=== PATIENT | female | born 1980 | race American Indian/Alaskan Native ===

== ENCOUNTER 2021-10-01 10:20 | Inpatient (IN) | payer SELFPAY ==
[2021-10-01] MEDS ORDERED: SODIUM CHLORIDE 0.9% 1000 ML 1,000 ML ONE (11:55)
[2021-10-01] MEDS ORDERED: PANTOPRAZOLE 40 MG INJ IV ONE (12:01)
[2021-10-01] MEDS ORDERED: SODIUM CHLORIDE 0.9% 1000 ML 1,000 ML IV ONE (12:02)
--- NOTE | 2021-10-01 12:08 | Emergency Department Report ---
ED GI Bleed HPI - General Chief complaint: GI Bleed Stated complaint: BLOOD IN STOOL X 2DAYS/HYPERTENSION Time Seen by Provider: 10/01/21 11:05 Source: EMS Mode of arrival: Ambulatory Limitations: No Limitations - History of Present Illness Initial comments: 41 yo F who present with rectal bleeding that started since 3 days ago and progressively getting worse. Pt has history of internal hemorrhoid and diverticulosis. She had the same symptoms about 8-10 years ago and was transfused at that time. She also reports some dizziness and lightheadedness. S he reports about average of 4-5 bloody diarrhea since this started. Pt had a large bloody diarrhea while in the ED this afternoon. No fever or chills reported. And patient denies any other modifying or associated factors. Severity scale (0 -10): 0 - Related Data Home Medications Medication Instructions Recorded Confirmed Last Taken No Known Home Medications [No 10/01/21 10/01/21 Unknown Reported Home Medications] Allergies Allergy/AdvReac Type Severity Reaction Status Date / Time No Known Allergies Allergy Verified 10/01/21 10:28 ED Review of Systems ROS: Stated complaint: BLOOD IN STOOL X 2DAYS/HYPERTENSION Other details as noted in HPI Comment: All other systems reviewed and negative Gastrointestinal: hematochezia, other (internal hemorrhoid ). denies: abdominal pain, nausea, vomiting ED Past Medical Hx - Past Medical History Previous Medical History?: Yes Hx Hypertension: Yes (Chronic-since teenager) Hx Congestive Heart Failure: No Hx Diabetes: No Hx Deep Vein Thrombosis: No Hx Renal Disease: No Hx Sickle Cell Disease: No Hx Seizures: No Hx Asthma: No Hx COPD: No Hx HIV: No Additional medical history: hemorrhoids, GASTRITIS - Surgical History Additional Surgical History: x3 - Social History Smoking Status: Current Every Day Smoker - Medications Home Medications: Home Medications Medication Instructions Recorded Confirmed Last Taken Type No Known Home Medications [No 10/01/21 10/01/21 Unknown History Reported Home Medications] ED Physical Exam - General Limitations: No Limitations General appearance: alert, in no apparent distress - Head Head exam: Present: normal inspection - Eye Eye exam: Present: normal appearance, other - ENT ENT exam: Present: normal orophraynx ED Course Vital Signs 10/01/21 10/01/21 10/01/21 10:22 10:44 10:51 Temperature 98.8 F Pulse Rate 134 H 129 H 133 H Respiratory 16 27 H 26 H Rate Blood Pressure Blood Pressure 170/111 156/101 [Left] O2 Sat by Pulse 100 100 99 Oximetry 10/01/21 10/01/21 10/01/21 11:00 11:30 12:00 Temperature Pulse Rate 123 H 131 H 122 H Respiratory 15 13 20 Rate Blood Pressure 135/102 137/94 141/99 Blood Pressure [Left] O2 Sat by Pulse 98 99 100 Oximetry 10/01/21 10/01/21 10/01/21 12:30 13:00 13:30 Temperature Pulse Rate 127 H 77 118 H Respiratory 21 39 H 17 Rate Blood Pressure 127/97 130/105 124/80 Blood Pressure [Left] O2 Sat by Pulse 100 100 97 Oximetry 10/01/21 10/01/21 10/01/21 14:00 14:50 15:00 Temperature Pulse Rate 92 H Respiratory 16 Rate Blood Pressure 121/83 Blood Pressure [Left] O2 Sat by Pulse 100 100 100 Oximetry 10/01/21 10/01/21 10/01/21 15:30 16:00 16:30 Temperature Pulse Rate Respiratory Rate Blood Pressure 131/80 137/85 139/90 Blood Pressure [Left] O2 Sat by Pulse 100 100 100 Oximetry 10/01/21 10/01/21 10/01/21 17:00 17:30 18:00 Temperature Pulse Rate Respiratory Rate Blood Pressure 131/78 120/78 129/94 Blood Pressure [Left] O2 Sat by Pulse 88 100 99 Oximetry 10/01/21 10/01/21 10/01/21 18:30 19:00 19:30 Temperature Pulse Rate 109 H Respiratory 19 Rate Blood Pressure 120/88 153/107 134/98 Blood Pressure [Left] O2 Sat by Pulse 100 100 100 Oximetry 10/01/21 10/01/21 10/01/21 20:00 20:30 20:32 Temperature 99.1 F Pulse Rate 121 H 128 H Respiratory 16 16 14 Rate Blood Pressure 132/106 140/98 Blood Pressure [Left] O2 Sat by Pulse 100 100 100 Oximetry 10/01/21 10/01/21 20:40 20:50 Temperature Pulse Rate 122 H 114 H Respiratory 16 17 Rate Blood Pressure 148/93 148/93 Blood Pressure [Left] O2 Sat by Pulse 100 100 Oximetry - Reevaluation(s) Reevaluation #1: 10/01/21 15:07 pt here with GI bleeding that i believed is internal hemorrhoid considering that it was painless and bright red in nature. Plus the patient has history of this with transfusion about 8-10 years ago. Routine labs ordered and noted with hemoglobin 7.8 and 24 hematocrit. Pt might not need blood transfusion at the time but i believed if she continue to bleed this way is a matter of time before blood in needed. Will go ahead and continue hydration with 1L ivf fluid for the hypotension. Reevaluation #2: 10/01/21 15:11 Pt signed out to Dr Hernandez while waiting for CT abd/pel result. ED Medical Decision Making - Lab Data Result diagrams: 10/03/21 09:07 10/03/21 06:55 Critical care attestation.: If time is entered above; I have spent that time in minutes in the direct care of this critically ill patient, excluding procedure time. ED Disposition Clinical Impression: Internal hemorrhoid, bleeding GI bleeding Qualifiers: GI bleed type/associated pathology: anorectal hemorrhage Qualified Code(s): K62.5 - Hemorrhage of anus and rectum Disposition: 09 ADMITTED INPATIENT Is pt being admited?: No Does the pt Need Aspirin: No Condition: Stable
[2021-10-01 12:33] LABS: Basophils % (Auto) 0.4 % (0.0-1.8); Eosinophils % (Auto) 0.2 % (0.0-4.3); Hematocrit 24.6 % (30.3-42.9); Hemoglobin 7.8 gm/dl (10.1-14.3); Lymphocytes % (Auto) 31.1 % (13.4-35.0); Mean Corpuscular HGB Conc 32 % (30-34); Mean Corpuscular Volume 95 fl (79-97); Monocytes # (Auto) 0.4 K/mm3 (0.0-0.8); Monocytes % (Auto) 5.7 % (0.0-7.3); Platelet Count 293 K/mm3 (140-440); Red Blood Count 2.58 M/mm3 (3.65-5.03)
[2021-10-01 12:42] LABS: INR 0.93 (0.87-1.13)
[2021-10-01 12:43] LABS: Partial Thromboplastin Time 27.6 Sec. (24.2-36.6)
[2021-10-01 12:54] LABS: Alanine Aminotransferase 14 units/L (7-56); Albumin 3.6 g/dL (3.9-5); Blood Urea Nitrogen 12 mg/dL (7-17); Calcium 8.9 mg/dL (8.4-10.2); Hemolysis Index 17
[2021-10-01 13:09] LABS: BUN/Creatinine Ratio 24
--- NOTE | 2021-10-01 15:17 | Cat Scan Report ---
CT ABDOMEN AND PELVIS WITH CONTRAST HISTORY: GI bleeding 100 ml omni 300 COMPARISON: None. TECHNIQUE: Axial CT images were obtained through the abdomen and pelvis after 100 cc of IV contrast. Sagittal and coronal reformatted images. All CT scans at this location are performed using CT dose re duction for ALARA by means of automated exposure control. FINDINGS: CT ABDOMEN: Lung Bases: Clear. Liver: No significant abnormality. Biliary: There are multiple calcified gallstones within the gallbladder. No evidence for acute cholec ystitis. No extrahepatic biliary dilatation. Spleen: No significant abnormality. Unenlarged. Pancreas: No significant abnormality. Adrenals: No significant abnormality. Kidneys: No significant abnormality. Lymphatics: No lymphadenopathy. Vasculature: No significant abnormality. Bowel/Peritoneum: No significant abnormality. No free air. No free fluid. Normal appendix. CT PELVIS: : No significant abnormality. Essure tubal devices are noted bilaterally. Osseous Structures: No significant abnormality. Additional Findings: None IMPRESSION: Cholelithiasis. No source of GI bleeding is detected on standard CT with contrast. Signer Name: Sergei Lentz Jr, MD Signed: 10/01/2021 3:13 PM Workstation Name: [id number]
--- NOTE | 2021-10-01 15:39 | Event Note ---
Date: 10/01/21 Patient was signed out to me at shift change for follow-up CT abdomen and pelvis. No source of GI bleeding noted on CT scan. Will admit to hospitalist service for serial H&H's and GI consult.
[2021-10-01] MEDS ORDERED: METOCLOPRAMIDE 10 MG/2 ML INJ IV PRN (19:03)
[2021-10-01] MEDS: SODIUM CHLORIDE 0.9% 1000 ML 1,000 ML IV SCH (23:14)
[2021-10-01] MEDS: ONDANSETRON 4 MG/2 ML INJ IV PRN (23:27)
--- NOTE | 2021-10-01 23:32 | Event Note ---
Date: 10/01/21 Code med is called patient is vomiting patient is diaphoretic patient is bleeding. BP is 101/51. We are going to transfer the patient to the [facility] ICU for overnight observation. We order stat CBC if needed will transfuse the patient. We also give Zofran 4 mg IV every 6 hours as needed.
[2021-10-01 23:38] LABS: Mean Corpuscular HGB Conc 32 % (30-34); Mean Corpuscular Volume 95 fl (79-97); Platelet Count 300 K/mm3 (140-440); Red Blood Count 1.77 M/mm3 (3.65-5.03); Red Cell Distribution Width 14.9 % (13.2-15.2)
[2021-10-02 00:07] LABS: Hematocrit 16.8 % (30.3-42.9); Hemoglobin 5.4 gm/dl (10.1-14.3)
[2021-10-02] MEDS ORDERED: SODIUM CHLORIDE 0.9% 500 ML 500 ML IV ONE ×2 (00:37→23:02)
[2021-10-02] MEDS ORDERED: PANTOPRAZOLE 40 MG INJ IV ONE (01:00)
[2021-10-02] MEDS ORDERED: SODIUM CHLORIDE 0.9% 1000 ML IV SOLN IV ONE (01:04)
[2021-10-02] MEDS: ONDANSETRON 4 MG/2 ML INJ IV PRN (01:24)
[2021-10-02 03:50] LABS: Monocytes % (Manual) 0 % (0.0-7.3); Total Cells Counted 100
[2021-10-02 03:51] LABS: Eosinophils % (Manual) 0 % (0.0-4.3)
[2021-10-02 03:53] LABS: Hypochromasia 3+; Platelet Estimate Consistent w Auto
--- NOTE | 2021-10-02 06:57 | History and Physical Report ---
History of Present Illness Date of examination: 10/01/21 Date of admission: 10/01/21 19:03 Chief complaint: Bright red blood per rectum for the last 2 days History of present illness: 41-year-old with history of hypertension comes in for rectal bleeding for the last 3 days. Blood per rectum intermittently for the last 3 days. Patient has a history of internal hemorrhoids and diverticulosis. Similar episode about 10 years ago. Dizziness and lightheadedness. 4-5 episodes of bloody stools for 2 hours. Patient had a large bloody bowel movement while in the emergency room. No abdominal pain. No fever or chills. - Past Medical History --Previous Medical History?: Yes --Hypertension: Does not take any medications --Additional medical history: hemorrhoids, GASTRITIS - Surgical History --Additional Surgical History: x3 - Social History --Smoking Status: Current Every Day Smoker - Family History --Htn - Medications --Home Medications: Home Medications Medication Instructions Recorded Confirmed Last Taken Type No Known Home Medications [No 10/01/21 10/01/21 Unknown History Reported Home Medications] Review of Systems ROS: Stated complaint: BLOOD IN STOOL X 2DAYS/HYPERTENSION Other details as noted in HPI Comment: All other systems reviewed and negative Gastrointestinal: hematochezia, other (internal hemorrhoid ). denies: abdominal pain, nausea, vomiting Medications and Allergies Allergies Allergy/AdvReac Type Severity Reaction Status Date / Time No Known Allergies Allergy Verified 10/01/21 10:28 Home Medications Medication Instructions Recorded Confirmed Last Taken Type No Known Home Medications [No 10/01/21 10/01/21 Unknown History Reported Home Medications] Active Meds: Active Medications Acetaminophen (Acetaminophen 325 Mg Tab) 650 mg PO Q4H PRN PRN Reason: Pain MILD(1-3)/Fever >100.5/FORTE Sodium Chloride (Nacl 0.9% 1000 Ml) 1,000 mls @ 75 mls/hr IV DIRECT MATT Last Admin: 10/01/21 23:14 Dose: 75 mls/hr Metoclopramide HCl (Metoclopramide 10 Mg/2 Ml Inj) 10 mg IV Q6H PRN PRN Reason: Nausea And Vomiting Morphine Sulfate (Morphine 2 Mg/1 Ml Inj) 2 mg IV Q4H PRN PRN Reason: Pain, Moderate (4-6) Ondansetron HCl (Ondansetron 4 Mg/2 Ml Inj) 4 mg IV Q8H PRN PRN Reason: Nausea And Vomiting Last Admin: 10/02/21 01:24 Dose: 4 mg Sodium Chloride (Sodium Chloride 0.9% 10 Ml Flush Syringe) 10 ml IV BID MATT Last Admin: 10/01/21 22:52 Dose: 10 ml Sodium Chloride (Sodium Chloride 0.9% 10 Ml Flush Syringe) 10 ml IV PRN PRN PRN Reason: LINE FLUSH Exam - Constitutional Vitals: Temp Pulse Resp BP Pulse Ox 98.4 F 95 H 22 116/91 99 10/02/21 04:44 10/02/21 05:30 10/02/21 05:30 10/02/21 05:30 10/02/21 05:30 General appearance: Present: no acute distress, well-nourished - EENT Eyes: Present: PERRL ENT: hearing intact, clear oral mucosa - Neck Neck: Present: supple, normal ROM - Respiratory Respiratory effort: normal Respiratory: bilateral: CTA - Cardiovascular Heart rate: 76 Rhythm: regular Heart Sounds: Present: S1 & S2. Absent: rub, click - Extremities Extremities: pulses symmetrical, No edema Peripheral Pulses: within normal limits - Abdominal General gastrointestinal: Present: soft, non-tender, non-distended, normal bowel sounds Female genitourinary: Present: normal - Rectal Rectal Exam: stool bloody - Integumentary Integumentary: Present: clear, warm, dry - Musculoskeletal Musculoskeletal: gait normal, strength equal bilaterally - Psychiatric Psychiatric: appropriate mood/affect, intact judgment & insight - Neurologic Neurologic: CNII-XII intact, moves all extremities Results - Labs CBC & Chem 7: 10/01/21 23:29 10/01/21 12:15 Labs: Laboratory Last Values WBC 13.1 K/mm3 (4.5-11.0) H 10/01/21 23:29 RBC 1.77 M/mm3 (3.65-5.03) L 10/01/21 23:29 Hgb 5.4 gm/dl (10.1-14.3) L* 10/01/21 23:29 Hct 16.8 % (30.3-42.9) L* D 10/01/21 23:29 MCV 95 fl (79-97) 10/01/21 23:29 MCH 31 pg (28-32) 10/01/21 23:29 MCHC 32 % (30-34) 10/01/21 23:29 RDW 14.9 % (13.2-15.2) 10/01/21 23:29 Plt Count 300 K/mm3 (140-440) 10/01/21 23:29 Lymph % (Auto) 31.1 % (13.4-35.0) 10/01/21 12:15 [place] % (Auto) 5.7 % (0.0-7.3) 10/01/21 12:15 Eos % (Auto) 0.2 % (0.0-4.3) 10/01/21 12:15 Baso % (Auto) 0.4 % (0.0-1.8) 10/01/21 12:15 Lymph # (Auto) Career Guidance Technician 10/01/21 23:29 [place] # (Auto) 0.4 K/mm3 (0.0-0.8) 10/01/21 12:15 Eos # (Auto) 0.0 K/mm3 (0.0-0.4) 10/01/21 12:15 Baso # (Auto) 0.0 K/mm3 (0.0-0.1) 10/01/21 12:15 Add Manual Diff Complete 10/01/21 23: Total Counted 100 10/01/21 23:29 Seg Neutrophils % 62.6 % (40.0-70.0) 10/01/21 12:15 Seg Neuts % (Manual) 57.0 % (40.0-70.0) 10/01/21 23:29 Band Neutrophils % 0 % 10/01/21 23:29 Lymphocytes % (Manual) 42.0 % (13.4-35.0) H 10/01/21 23:29 Reactive Lymphs % (Man) 0 % 10/01/21 23:29 Monocytes % (Manual) 0 % (0.0-7.3) 10/01/21 23:29 Eosinophils % (Manual) 0 % (0.0-4.3) 10/01/21 23:29 Basophils % (Manual) 1.0 % (0.0-1.8) 10/01/21 23:29 Metamyelocytes % 0 % 10/01/21 23:29 Myelocytes % 0 % 10/01/21 23:29 Promyelocytes % 0 % 10/01/21 23:29 Blast Cells % 0 % 10/01/21 23:29 Nucleated RBC % Not Reportable 10/01/21 23:29 Seg Neutrophils # 4.0 K/mm3 (1.8-7.7) 10/01/21 12:15 Seg Neutrophils # Man 7.5 K/mm3 (1.8-7.7) 10/01/21 23:29 Band Neutrophils # 0.0 K/mm3 10/01/21 23:29 Lymphocytes # (Manual) 5.5 K/mm3 (1.2-5.4) H 10/01/21 23:29 Abs React Lymphs (Man) 0.0 K/mm3 10/01/21 23:29 Monocytes # (Manual) 0.0 K/mm3 (0.0-0.8) 10/01/21 23:29 Eosinophils # (Manual) 0.0 K/mm3 (0.0-0.4) 10/01/21 23:29 Basophils # (Manual) 0.1 K/mm3 (0.0-0.1) 10/01/21 23:29 Metamyelocytes # 0.0 K/mm3 10/01/21 23:29 Myelocytes # 0.0 K/mm3 10/01/21 23:29 Promyelocytes # 0.0 K/mm3 10/01/21 23:29 Blast Cells # 0.0 K/mm3 10/01/21 23:29 WBC Morphology Not Reportable 10/01/21 23:29 Hypersegmented Neuts Not Reportable 10/01/21 23:29 Hyposegmented Neuts Not Reportable 10/01/21 23:29 Hypogranular Neuts Not Reportable 10/01/21 23:29 Smudge Cells Not Reportable 10/01/21 23:29 Toxic Granulation Not Reportable 10/01/21 23:29 Toxic Vacuolation Not Reportable 10/01/21 23:29 Dohle Bodies Not Reportable 10/01/21 23:29 Pelger-Huet Anomaly Not Reportable 10/01/21 23:29 Gómez Rods Not Reportable 10/01/21 23:29 Platelet Estimate Consistent w auto 10/01/21 23:29 Clumped Platelets Not Reportable 10/01/21 23:29 Plt Clumps, EDTA Not Reportable 10/01/21 23:29 Large Platelets Not Reportable 10/01/21 23:29 Giant Platelets Not Reportable 10/01/21 23:29 Platelet Satelliting Not Reportable 10/01/21 23:29 Plt Morphology Comment Not Reportable 10/01/21 23:29 RBC Morphology Not Reportable 10/01/21 23:29 Dimorphic RBCs Not Reportable 10/01/21 23:29 Polychromasia Not Reportable 10/01/21 23:29 Hypochromasia 3+ 10/01/21 23:29 Poikilocytosis Not Reportable 10/01/21 23:29 Anisocytosis Not Reportable 10/01/21 23:29 Microcytosis Not Reportable 10/01/21 23:29 Macrocytosis Not Reportable 10/01/21 23:29 Spherocytes Not Reportable 10/01/21 23:29 Pappenheimer Bodies Not Reportable 10/01/21 23:29 Sickle Cells Not Reportable 10/01/21 23:29 Target Cells Not Reportable 10/01/21 23:29 Tear Drop Cells Not Reportable 10/01/21 23:29 Ovalocytes Not Reportable 10/01/21 23:29 Helmet Cells Not Reportable 10/01/21 23:29 [place] Bodies Not Reportable 10/01/21 23:29 Bosque Rings Not Reportable 10/01/21 23:29 Octavio Cells Not Reportable 10/01/21 23:29 Bite Cells Not Reportable 10/01/21 23:29 Crenated Cell Not Reportable 10/01/21 23:29 Elliptocytes Not Reportable 10/01/21 23:29 Acanthocytes (Spur) Not Reportable 10/01/21 23:29 Rouleaux Not Reportable 10/01/21 23:29 Hemoglobin C Crystals Not Reportable 10/01/21 23:29 Schistocytes Not Reportable 10/01/21 23:29 Malaria parasites Not Reportable 10/01/21 23:29 Brendan Bodies Not Reportable 10/01/21 23:29 Hem Pathologist Commnt No 10/01/21 23:29 PT 13.5 Sec. (12.2-14.9) 10/01/21 12:15 INR 0.93 (0.87-1.13) 10/01/21 12:15 APTT 27.6 Sec. (24.2-36.6) 10/01/21 12:15 Sodium 141 mmol/L (137-145) 10/01/21 12:15 Potassium 4.1 mmol/L (3.6-5.0) 10/01/21 12:15 Chloride 105.0 mmol/L (98-107) 10/01/21 12:15 Carbon Dioxide 25 mmol/L (22-30) 10/01/21 12:15 Anion Gap 15 mmol/L 10/01/21 12:15 BUN 12 mg/dL (7-17) 10/01/21 12:15 Creatinine 0.5 mg/dL (0.6-1.2) L 10/01/21 12:15 Estimated GFR > 60 ml/min 10/01/21 12:15 BUN/Creatinine Ratio 24 % 10/01/21 12:15 Glucose 126 mg/dL (65-100) H 10/01/21 12:15 POC Glucose 159 mg/dL (70-105) H 10/01/21 23:20 Lactic Acid 1.60 mmol/L (0.7-2.0) 10/01/21 12:15 Calcium 8.9 mg/dL (8.4-10.2) 10/01/21 12:15 Total Bilirubin < 0.20 mg/dL (0.1-1.2) 10/01/21 12:15 AST 13 units/L (5-40) 10/01/21 12:15 ALT 14 units/L (7-56) 10/01/21 12:15 Alkaline Phosphatase 41 units/L (35-129) 10/01/21 12:15 Total Protein 5.8 g/dL (6.3-8.2) L 10/01/21 12:15 Albumin 3.6 g/dL (3.9-5) L 10/01/21 12:15 Albumin/Globulin Ratio 1.6 % 10/01/21 12:15 Blood Type O POSITIVE 10/02/21 00:55 Antibody Screen Negative 10/02/21 00:55 Crossmatch See Detail 10/02/21 00:55 Short CBC 10/01/21 10/01/21 Range/Units 12:15 23:29 WBC 6.4 13.1 H (4.5-11.0) K/mm3 Hgb 7.8 L 5.4 L* (10.1-14.3) gm/dl Hct 24.6 L 16.8 L* D (30.3-42.9) % Plt Count 293 300 (140-440) K/mm3 BMP 10/01/21 12:15 Sodium 141 Potassium 4.1 Chloride 105.0 Carbon Dioxide 25 BUN 12 Creatinine 0.5 L Glucose 126 H Calcium 8.9 Liver Function 10/01/21 Range/Units 12:15 Total Bilirubin < 0.20 (0.1-1.2) mg/dL AST 13 (5-40) units/L ALT 14 (7-56) units/L Alkaline Phosphatase 41 (35-129) units/L Albumin 3.6 L (3.9-5) g/dL [place]/IV: Voiding Method Toilet Assessment and Plan Advance Directives: Yes (Full code) VTE prophylaxis?: Chemical, Mechanical Plan of care discussed with patient/family: Yes - Patient Problems (1) Lower GI bleed Current Visit: Yes Status: Acute Plan to address problem: Patient has bright red blood per rectum IV fluids and transfuse as necessary Serial hemoglobin and hematocrit Patient has a history of internal hemorrhoids GI consult requested Transfuse as necessary Transfuse if hemoglobin less than 7 (2) Anemia Current Visit: Yes Status: Acute Qualifiers: Anemia type: unspecified type Qualified Code(s): D64.9 - Anemia, unspecified Plan to address problem: From chronic bradycardia Check hematocrit and hemoglobin every 8 hours (3) Hypertension Current Visit: Yes Status: Chronic Qualifiers: Hypertension type: primary hypertension Qualified Code(s): I10 - Essential (primary) hypertension Plan to address problem: Borderline Initiate blood pressure medicines if necessary (4) DVT prophylaxis Current Visit: Yes Status: Acute Plan to address problem: On SCDs and GI prophylaxis (5) Advance care planning Current Visit: Yes Status: Acute Plan to address problem: Disease education conducted, care plan discussed, diagnosis discussed, prognosis discussed. Patient is full code. Patient acknowledges understanding and agreement with care plan. +30 minutes.
[2021-10-02] MEDS: MORPHINE 2 MG/1 ML INJ IV PRN (08:25)
[2021-10-02] MEDS: PANTOPRAZOLE 40 MG INJ IV SCH ×2 (10:46→21:38)
[2021-10-02 13:12] LABS: Basophils % (Auto) 0.2 % (0.0-1.8); Eosinophils % (Auto) 0.1 % (0.0-4.3); Hematocrit 28.1 % (30.3-42.9); Hemoglobin 9.3 gm/dl (10.1-14.3); Lymphocytes # (Auto) 2.3 K/mm3 (1.2-5.4); Lymphocytes % (Auto) 26.2 % (13.4-35.0); Mean Corpuscular HGB Conc 33 % (30-34); Mean Corpuscular Volume 91 fl (79-97); Monocytes # (Auto) 0.5 K/mm3 (0.0-0.8); Monocytes % (Auto) 5.8 % (0.0-7.3); Platelet Count 175 K/mm3 (140-440); Red Blood Count 3.09 M/mm3 (3.65-5.03); Red Cell Distribution Width 14.6 % (13.2-15.2)
--- NOTE | 2021-10-02 13:50 | Progress Note ---
Assessment and Plan Assessment and plan: 41-year-old with history of hypertension comes in for rectal bleeding for the last 3 days. Blood per rectum intermittently for the last 3 days. Patient has a history of internal hemorrhoids and diverticulosis. Similar episode about 10 years ago. Dizziness and lightheadedness. 4-5 episodes of bloody stools for 2 hours. Patient had a large bloody bowel movement while in the emergency room. No abdom inal pain. No fever or chills. 10/02: Patient seen and examined, she is clinically stable now, she is S/P 3 units PRBC, she reports that she has had Bleeding hemorrhoids in the past. Will continue in the IMCU, till GI procedure, continue PPI. - Patient Problems (1) Lower GI bleed Current Visit: Yes Status: Acute Plan to address problem: Patient has bright red blood per rectum IV fluids and transfuse as necessary Serial hemoglobin and hematocrit Patient has a history of internal hemorrhoids GI consult requested Transfuse as necessary Transfuse if hemoglobin less than 7 (2) Symptomatic anemia Current Visit: Yes Status: Acute Qualifiers: Anemia type: unspecified type Qualified Code(s): D64.9 - Anemia, unspecified Plan to address problem: From chronic bradycardia Check hematocrit and hemoglobin every 8 hours (3) Hypertension Current Visit: Yes Status: Chronic Qualifiers: Hypertension type: primary hypertension Qualified Code(s): I10 - Essential (primary) hypertension Plan to address problem: Borderline Initiate blood pressure medicines if necessary (4) Vasogenic shock (5) DVT prophylaxis Current Visit: Yes Status: Acute Plan to address problem: On SCDs and GI prophylaxis (6) Advance care planning Current Visit: Yes Status: Acute Plan to address problem: Disease education conducted, care plan discussed, diagnosis discussed, prognosis discussed. Patient is full code. Patient acknowledges understanding and agreement with care plan. +30 minutes. History Interval history: Patient seen and examined at this time resting comfortably no acute distress was transferred to the [facility] due to recurrent bleeding and hypotension now stabilized. Awaiting her GI procedure. Hospitalist Physical - Physical exam Narrative exam: VITAL SIGNS: Reviewed. GENERAL: The patient appears normally developed, Vital signs as documented. HEAD: No signs of head trauma. EYES: Pupils are equal. Extraocular motions intact. EARS: Hearing grossly intact. MOUTH: Oropharynx is normal. NECK: No adenopathy, no JVD. CHEST: Chest with clear breath sounds bilaterally. No wheezes, rales, or rhonchi. CARDIAC: Regular rate and rhythm. S1 and S2, without murmurs, gallops, or rubs. VASCULAR: No Edema. Peripheral pulses normal and equal in all extremities. ABDOMEN: Soft, non tender and non distended. No rebound or guarding, and no masses palpated. Bowel Sounds normal. MUSCULOSKELETAL: Good range of motion of all major joints. Extremities without clubbing, cyanosis or edema. NEUROLOGIC EXAM: Alert and oriented x 3 No focal sensory or strength def icits. Speech normal. Follows commands. PSYCHIATRIC: Mood normal. SKIN: detail exam as documented in skin assessment - Constitutional Vitals: Temp Pulse Resp BP Pulse Ox 98.6 F 89 24 148/89 100 10/02/21 10:15 10/02/21 10:15 10/02/21 10:15 10/02/21 10:15 10/02/21 10:15 General appearance: Present: no acute distress, well-nourished Results - Labs CBC & Chem 7: 10/02/21 12:35 10/01/21 12:15 Labs: Laboratory Last Values WBC 8.8 K/mm3 (4.5-11.0) 10/02/21 12:35 RBC 3.09 M/mm3 (3.65-5.03) L 10/02/21 12:35 Hgb 5.4 gm/dl (10.1-14.3) L* 10/01/21 23:29 Hct 16.8 % (30.3-42.9) L* D 10/01/21 23:29 MCV 91 fl (79-97) 10/02/21 12:35 MCH 30 pg (28-32) 10/02/21 12:35 MCHC 33 % (30-34) 10/02/21 12:35 RDW 14.6 % (13.2-15.2) 10/02/21 12:35 Plt Count 175 K/mm3 (140-440) 10/02/21 12:35 Lymph % (Auto) 26.2 % (13.4-35.0) 10/02/21 12:35 [place] % (Auto) 5.8 % (0.0-7.3) 10/02/21 12:35 Eos % (Auto) 0.1 % (0.0-4.3) 10/02/21 12:35 Baso % (Auto) 0.2 % (0.0-1.8) 10/02/21 12:35 Lymph # (Auto) 2.3 K/mm3 (1.2-5.4) 10/02/21 12:35 [place] # (Auto) 0.5 K/mm3 (0.0-0.8) 10/02/21 12:35 Eos # (Auto) 0.0 K/mm3 (0.0-0.4) 10/02/21 12:35 Baso # (Auto) 0.0 K/mm3 (0.0-0.1) 10/02/21 12:35 Add Manual Diff Complete 10/01/21 23: Total Counted 100 10/01/21 23:29 Seg Neutrophils % 67.7 % (40.0-70.0) 10/02/21 12:35 Seg Neuts % (Manual) 57.0 % (40.0-70.0) 10/01/21 23:29 Band Neutrophils % 0 % 10/01/21 23:29 Lymphocytes % (Manual) 42.0 % (13.4-35.0) H 10/01/21 23:29 Reactive Lymphs % (Man) 0 % 10/01/21 23:29 Monocytes % (Manual) 0 % (0.0-7.3) 10/01/21 23:29 Eosinophils % (Manual) 0 % (0.0-4.3) 10/01/21 23:29 Basophils % (Manual) 1.0 % (0.0-1.8) 10/01/21 23:29 Metamyelocytes % 0 % 10/01/21 23:29 Myelocytes % 0 % 10/01/21 23:29 Promyelocytes % 0 % 10/01/21 23:29 Blast Cells % 0 % 10/01/21 23:29 Nucleated RBC % Not Reportable 10/01/21 23:29 Seg Neutrophils # 6.0 K/mm3 (1.8-7.7) 10/02/21 12:35 Seg Neutrophils # Man 7.5 K/mm3 (1.8-7.7) 10/01/21 23:29 Band Neutrophils # 0.0 K/mm3 10/01/21 23:29 Lymphocytes # (Manual) 5.5 K/mm3 (1.2-5.4) H 10/01/21 23:29 Abs React Lymphs (Man) 0.0 K/mm3 10/01/21 23:29 Monocytes # (Manual) 0.0 K/mm3 (0.0-0.8) 10/01/21 23:29 Eosinophils # (Manual) 0.0 K/mm3 (0.0-0.4) 10/01/21 23:29 Basophils # (Manual) 0.1 K/mm3 (0.0-0.1) 10/01/21 23:29 Metamyelocytes # 0.0 K/mm3 10/01/21 23:29 Myelocytes # 0.0 K/mm3 10/01/21 23:29 Promyelocytes # 0.0 K/mm3 10/01/21 23:29 Blast Cells # 0.0 K/mm3 10/01/21 23:29 WBC Morphology Not Reportable 10/01/21 23:29 Hypersegmented Neuts Not Reportable 10/01/21 23:29 Hyposegmented Neuts Not Reportable 10/01/21 23:29 Hypogranular Neuts Not Reportable 10/01/21 23:29 Smudge Cells Not Reportable 10/01/21 23:29 Toxic Granulation Not Reportable 10/01/21 23:29 Toxic Vacuolation Not Reportable 10/01/21 23:29 Dohle Bodies Not Reportable 10/01/21 23:29 Pelger-Huet Anomaly Not Reportable 10/01/21 23:29 Gómez Rods Not Reportable 10/01/21 23:29 Platelet Estimate Consistent w auto 10/01/21 23:29 Clumped Platelets Not Reportable 10/01/21 23:29 Plt Clumps, EDTA Not Reportable 10/01/21 23:29 Large Platelets Not Reportable 10/01/21 23:29 Giant Platelets Not Reportable 10/01/21 23:29 Platelet Satelliting Not Reportable 10/01/21 23:29 Plt Morphology Comment Not Reportable 10/01/21 23:29 RBC Morphology Not Reportable 10/01/21 23:29 Dimorphic RBCs Not Reportable 10/01/21 23:29 Polychromasia Not Reportable 10/01/21 23:29 Hypochromasia 3+ 10/01/21 23:29 Poikilocytosis Not Reportable 10/01/21 23:29 Anisocytosis Not Reportable 10/01/21 23:29 Microcytosis Not Reportable 10/01/21 23:29 Macrocytosis Not Reportable 10/01/21 23:29 Spherocytes Not Reportable 10/01/21 23:29 Pappenheimer Bodies Not Reportable 10/01/21 23:29 Sickle Cells Not Reportable 10/01/21 23:29 Target Cells Not Reportable 10/01/21 23:29 Tear Drop Cells Not Reportable 10/01/21 23:29 Ovalocytes Not Reportable 10/01/21 23:29 Helmet Cells Not Reportable 10/01/21 23:29 [place] Bodies Not Reportable 10/01/21 23:29 [place] Rings Not Reportable 10/01/21 23:29 Tobias Cells Not Reportable 10/01/21 23:29 Bite Cells Not Reportable 10/01/21 23:29 Crenated Cell Not Reportable 10/01/21 23:29 Elliptocytes Not Reportable 10/01/21 23:29 Acanthocytes (Spur) Not Reportable 10/01/21 23:29 Rouleaux Not Reportable 10/01/21 23:29 Hemoglobin C Crystals Not Reportable 10/01/21 23:29 Schistocytes Not Reportable 10/01/21 23:29 Malaria parasites Not Reportable 10/01/21 23:29 Brendan Bodies Not Reportable 10/01/21 23:29 Hem Pathologist Commnt No 10/01/21 23:29 PT 13.5 Sec. (12.2-14.9) 10/01/21 12:15 INR 0.93 (0.87-1.13) 10/01/21 12:15 APTT 27.6 Sec. (24.2-36.6) 10/01/21 12:15 Sodium 141 mmol/L (137-145) 10/01/21 12:15 Potassium 4.1 mmol/L (3.6-5.0) 10/01/21 12:15 Chloride 105.0 mmol/L (98-107) 10/01/21 12:15 Carbon Dioxide 25 mmol/L (22-30) 10/01/21 12:15 Anion Gap 15 mmol/L 10/01/21 12:15 BUN 12 mg/dL (7-17) 10/01/21 12:15 Creatinine 0.5 mg/dL (0.6-1.2) L 10/01/21 12:15 Estimated GFR > 60 ml/min 10/01/21 12:15 BUN/Creatinine Ratio 24 % 10/01/21 12:15 Glucose 126 mg/dL (65-100) H 10/01/21 12:15 POC Glucose 159 mg/dL (70-105) H 10/01/21 23:20 Lactic Acid 1.60 mmol/L (0.7-2.0) 10/01/21 12:15 Calcium 8.9 mg/dL (8.4-10.2) 10/01/21 12:15 Total Bilirubin < 0.20 mg/dL (0.1-1.2) 10/01/21 12:15 AST 13 units/L (5-40) 10/01/21 12:15 ALT 14 units/L (7-56) 10/01/21 12:15 Alkaline Phosphatase 41 units/L (35-129) 10/01/21 12:15 Total Protein 5.8 g/dL (6.3-8.2) L 10/01/21 12:15 Albumin 3.6 g/dL (3.9-5) L 10/01/21 12:15 Albumin/Globulin Ratio 1.6 % 10/01/21 12:15 Blood Type O POSITIVE 10/02/21 00:55 Antibody Screen Negative 10/02/21 00:55 Crossmatch See Detail 10/02/21 00:55 [place]/IV: Voiding Method Toilet Active Medications - Current Medications Current Medications: Generic Name Dose Route Start Last Admin Trade Name Freq PRN Reason Stop Dose Admin Acetaminophen 650 mg 10/01/21 19:03 Acetaminophen 325 Mg Tab PO Q4H PRN Pain MILD(1-3)/Fever >100.5/FORTE Sodium Chloride 1,000 mls @ 75 mls/hr 10/01/21 19:15 10/01/21 23:14 Nacl 0.9% 1000 Ml IV 75 mls/hr DIRECT MATT Administration Metoclopramide HCl 10 mg 10/01/21 19:03 Metoclopramide 10 Mg/2 Ml Inj IV Q6H PRN Nausea And Vomiting Morphine Sulfate 2 mg 10/01/21 19:03 10/02/21 08:25 Morphine 2 Mg/1 Ml Inj IV 2 mg Q4H PRN Administration Pain, Moderate (4-6) Ondansetron HCl 4 mg 10/01/21 19:03 10/02/21 01:24 Ondansetron 4 Mg/2 Ml Inj IV 4 mg Q8H PRN Administration Nausea And Vomiting Pantoprazole Sodium 40 mg 10/02/21 10:00 10/02/21 10:46 Pantoprazole 40 Mg Inj IV 40 mg BID MATT Administration Sodium Chloride 10 ml 10/01/21 22:00 10/02/21 10:46 Sodium Chloride 0.9% 10 Ml Flush Syringe IV 10 ml BID MATT Administration Sodium Chloride 10 ml 10/01/21 19:03 Sodium Chloride 0.9% 10 Ml Flush Syringe IV PRN PRN LINE FLUSH
[2021-10-02 14:01] LABS: Alanine Aminotransferase 15 units/L (7-56); Albumin 3.3 g/dL (3.9-5); Blood Urea Nitrogen 15 mg/dL (7-17); Calcium 7.9 mg/dL (8.4-10.2); Hemolysis Index 2
[2021-10-02 14:03] LABS: BUN/Creatinine Ratio 38
--- NOTE | 2021-10-02 15:10 | Gastroenterology Consultation ---
History of Present Illness - Reason for Consult Consult date: 10/02/21 GI bleed Requesting physician: EDEL GRIGGS - History of Present Illness The patient is a 41 yo aaf who presents with hematochezia x 3 days. Patient reports having episodes of dark maroon blood per rectum with clots filling camode multiple times this week. she felt light headed yesterday morning after which she came to ER. initial hgb 7, dropped to 5 last night after bleeding episode, improved to 9 after 3 units. hypotensive temporarily yesterday, improved/stable vitals now. Had similar presentation 2013 with colonoscopy showing diverticulosis and internal hemorrhoids. no further bleeding episodes today. Past History Past Medical History: No medical history Past Surgical History: Social history: smoking Medications and Allergies Allergies Allergy/AdvReac Type Severity Reaction Status Date / Time No Known Allergies Allergy Verified 10/01/21 10:28 Home Medications Medication Instructions Recorded Confirmed Last Taken Type No Known Home Medications [No 10/01/21 10/01/21 Unknown History Reported Home Medications] Active Meds: Active Medications Acetaminophen (Acetaminophen 325 Mg Tab) 650 mg PO Q4H PRN PRN Reason: Pain MILD(1-3)/Fever >100.5/FORTE Sodium Chloride (Nacl 0.9% 1000 Ml) 1,000 mls @ 75 mls/hr IV DIRECT [facility] Last Admin: 10/01/21 23:14 Dose: 75 mls/hr Metoclopramide HCl (Metoclopramide 10 Mg/2 Ml Inj) 10 mg IV Q6H PRN PRN Reason: Nausea And Vomiting Morphine Sulfate (Morphine 2 Mg/1 Ml Inj) 2 mg IV Q4H PRN PRN Reason: Pain, Moderate (4-6) Last Admin: 10/02/21 08:25 Dose: 2 mg Ondansetron HCl (Ondansetron 4 Mg/2 Ml Inj) 4 mg IV Q8H PRN PRN Reason: Nausea And Vomiting Last Admin: 10/02/21 01:24 Dose: 4 mg Pantoprazole Sodium (Pantoprazole 40 Mg Inj) 40 mg IV BID [facility] Last Admin: 10/02/21 10:46 Dose: 40 mg Sodium Chloride (Sodium Chloride 0.9% 10 Ml Flush Syringe) 10 ml IV BID [facility] Last Admin: 10/02/21 10:46 Dose: 10 ml Sodium Chloride (Sodium Chloride 0.9% 10 Ml Flush Syringe) 10 ml IV PRN PRN PRN Reason: LINE FLUSH Reviewed/updated patient's home and current medications Review of Systems - Review of Systems All systems: negative (per HPI) Exam - Constitutional Vital Signs: Temp Pulse Resp BP Pulse Ox 98.6 F 94 H 28 H 148/89 99 10/02/21 10:15 10/02/21 14:28 10/02/21 14:28 10/02/21 10:15 10/02/21 14:28 General appearance: no acute distress - EENT Eyes: PERRL, EOM intact - Respiratory Respiratory effort: normal Respiratory: bilateral: CTA - Cardiovascular Rhythm: regular Heart Sounds: Present: S1 & S2 - Gastrointestinal General gastrointestinal: Present: soft, non-tender, non-distended - Neurologic Neurological: alert and oriented x3 - Psychiatric Psychiatric: appropriate mood/affect - Labs CBC & Chem 7: 10/02/21 12:35 10/02/21 12:35 Lab Results: Laboratory Results - last 24 hr 10/01/21 10/01/21 10/02/21 23:20 23:29 00:55 WBC 13.1 H RBC 1.77 L Hgb 5.4 L* Hct 16.8 L* D MCV 95 MCH 31 MCHC 32 RDW 14.9 Plt Count 300 Lymph % (Auto) [place] % (Auto) Eos % (Auto) Baso % (Auto) Lymph # (Auto) [employer] [place] # (Auto) Eos # (Auto) Baso # (Auto) Add Manual Diff Complete Total Counted 100 Seg Neutrophils % Seg Neuts % (Manual) 57.0 Band Neutrophils % 0 Lymphocytes % (Manual) 42.0 H Reactive Lymphs % (Man) 0 Monocytes % (Manual) 0 Eosinophils % (Manual) 0 Basophils % (Manual) 1.0 Metamyelocytes % 0 Myelocytes % 0 Promyelocytes % 0 Blast Cells % 0 Nucleated RBC % Not Reportable Seg Neutrophils # Seg Neutrophils # Man 7.5 Band Neutrophils # 0.0 Lymphocytes # (Manual) 5.5 H Abs React Lymphs (Man) 0.0 Monocytes # (Manual) 0.0 Eosinophils # (Manual) 0.0 Basophils # (Manual) 0.1 Metamyelocytes # 0.0 Myelocytes # 0.0 Promyelocytes # 0.0 Blast Cells # 0.0 WBC Morphology Not Reportable Hypersegmented Neuts Not Reportable Hyposegmented Neuts Not Reportable Hypogranular Neuts Not Reportable Smudge Cells Not Reportable Toxic Granulation Not Reportable Toxic Vacuolation Not Reportable Dohle Bodies Not Reportable Pelger-Huet Anomaly Not Reportable Gómez Rods Not Reportable Platelet Estimate Consistent w auto Clumped Platelets Not Reportable Plt Clumps, EDTA Not Reportable Large Platelets Not Reportable Giant Platelets Not Reportable Platelet Satelliting Not Reportable Plt Morphology Comment Not Reportable RBC Morphology Not Reportable Dimorphic RBCs Not Reportable Polychromasia Not Reportable Hypochromasia 3+ Poikilocytosis Not Reportable Anisocytosis Not Reportable Microcytosis Not Reportable Macrocytosis Not Reportable Spherocytes Not Reportable Pappenheimer Bodies Not Reportable Sickle Cells Not Reportable Target Cells Not Reportable Tear Drop Cells Not Reportable Ovalocytes Not Reportable Helmet Cells Not Reportable [place] Bodies Not Reportable [place] Rings Not Reportable [place] Cells Not Reportable Bite Cells Not Reportable Crenated Cell Not Reportable Elliptocytes Not Reportable Acanthocytes (Spur) Not Reportable Rouleaux Not Reportable Hemoglobin C Crystals Not Reportable Schistocytes Not Reportable Malaria parasites Not Reportable Brendan Bodies Not Reportable Hem Pathologist Commnt No Sodium Potassium Chloride Carbon Dioxide Anion Gap BUN Creatinine Estimated GFR BUN/Creatinine Ratio Glucose POC Glucose 159 H Calcium Total Bilirubin AST ALT Alkaline Phosphatase Total Protein Albumin Albumin/Globulin Ratio Blood Type O POSITIVE Antibody Screen Negative Crossmatch See Detail 10/02/21 10/02/21 12:35 12:35 WBC 8.8 RBC 3.09 L Hgb 9.3 L D Hct 28.1 L D MCV 91 MCH 30 MCHC 33 RDW 14.6 Plt Count 175 Lymph % (Auto) 26.2 [place] % (Auto) 5.8 Eos % (Auto) 0.1 Baso % (Auto) 0.2 Lymph # (Auto) 2.3 [place] # (Auto) 0.5 Eos # (Auto) 0.0 Baso # (Auto) 0.0 Add Manual Diff Total Counted Seg Neutrophils % 67.7 Seg Neuts % (Manual) Band Neutrophils % Lymphocytes % (Manual) Reactive Lymphs % (Man) Monocytes % (Manual) Eosinophils % (Manual) Basophils % (Manual) Metamyelocytes % Myelocytes % Promyelocytes % Blast Cells % Nucleated RBC % Seg Neutrophils # 6.0 Seg Neutrophils # Man Band Neutrophils # Lymphocytes # (Manual) Abs React Lymphs (Man) Monocytes # (Manual) Eosinophils # (Manual) Basophils # (Manual) Metamyelocytes # Myelocytes # Promyelocytes # Blast Cells # WBC Morphology Hypersegmented Neuts Hyposegmented Neuts Hypogranular Neuts Smudge Cells Toxic Granulation Toxic Vacuolation Dohle Bodies Pelger-Huet Anomaly Gómez Rods Platelet Estimate Clumped Platelets Plt Clumps, EDTA Large Platelets Giant Platelets Platelet Satelliting Plt Morphology Comment RBC Morphology Dimorphic RBCs Polychromasia Hypochromasia Poikilocytosis Anisocytosis Microcytosis Macrocytosis Spherocytes Pappenheimer Bodies Sickle Cells Target Cells Tear Drop Cells Ovalocytes Helmet Cells [place] Bodies [place] Rings [place] Cells Bite Cells Crenated Cell Elliptocytes Acanthocytes (Spur) Rouleaux Hemoglobin C Crystals Schistocytes Malaria parasites Brendan Bodies Hem Pathologist Commnt Sodium 141 Potassium 3.7 Chloride 107.2 H Carbon Dioxide 26 Anion Gap 12 BUN 15 Creatinine 0.4 L Estimated GFR > 60 BUN/Creatinine Ratio 38 Glucose 104 H POC Glucose Calcium 7.9 L Total Bilirubin 0.30 AST 17 ALT 15 Alkaline Phosphatase 34 L Total Protein 5.0 L Albumin 3.3 L Albumin/Globulin Ratio 1.9 Blood Type Antibody Screen Crossmatch Assessment and Plan Hematochezia - suspect diverticular bleeding (known tics from prior colonoscopy). no bleeding today, H/H responded appropriately to blood transfusion and stable vitals. okay to start clear liquid diet. if no further bleeding today/overnight and labs stable tomorrow, can consider discharge home.
[2021-10-02] MEDS: SODIUM CHLORIDE 0.9% 1000 ML 1,000 ML IV SCH (15:13)
[2021-10-02 15:58] LABS: Hematocrit 26.1 % (30.3-42.9); Hemoglobin 8.8 gm/dl (10.1-14.3)
[2021-10-02 22:12] LABS: Hematocrit 20.4 % (30.3-42.9); Hemoglobin 6.6 gm/dl (10.1-14.3)
[2021-10-03 07:22] LABS: Hematocrit 22.7 % (30.3-42.9); Hemoglobin 7.7 gm/dl (10.1-14.3); Mean Corpuscular HGB Conc 34 % (30-34); Mean Corpuscular Volume 87 fl (79-97); Platelet Count 164 K/mm3 (140-440); Red Blood Count 2.61 M/mm3 (3.65-5.03); Red Cell Distribution Width 16.1 % (13.2-15.2)
[2021-10-03 07:45] LABS: Blood Urea Nitrogen 13 mg/dL (7-17); Calcium 7.7 mg/dL (8.4-10.2); Hemolysis Index 2
[2021-10-03 07:46] LABS: BUN/Creatinine Ratio 33
[2021-10-03] MEDS ORDERED: SODIUM CHLORIDE 0.9% 500 ML 500 ML IV ONE ×2 (08:38→08:49)
[2021-10-03] MEDS ORDERED: SODIUM CHLORIDE 0.9% 1000 ML 2,000 ML IV ONE (08:50)
--- NOTE | 2021-10-03 09:26 | Gastroenterology Progress Note ---
Assessment and Plan 1. GI bleed with acute on chronic anemia - continued bleeding with syncopal episode this morning. examined at bedside. awake/alert, vitals now stable. blood transfusions pending. Stat CTA has been ordered. discussed with IR, if positive, the would recommend embolization. if negative, will need golytely prep this evening for egd/colonoscopy tomorrow. serial h/h and transfuse if hgb < 7. Subjective Date of service: 10/03/21 Principal diagnosis: gi bleed Interval history: pt had recurrent gi bleeding with clots this AM with syncopal episode while out of bed. awake/alert at time of exam. vitals have stabilized. Objective - Constitutional Vitals: Temp Pulse Resp BP Pulse Ox 99.0 F 87 17 134/86 99 10/03/21 07:26 10/03/21 05:51 10/03/21 05:21 10/03/21 07:11 10/03/21 07:11 General appearance: no acute distress - Respiratory Respiratory effort: normal Respiratory: bilateral: CTA - Cardiovascular Rhythm: regular Heart Sounds: Present: S1 & S2 - Gastrointestinal General gastrointestinal: Present: soft, non-tender, non-distended - Labs CBC & Chem 7: 10/03/21 06:55 10/03/21 06:55 Labs: Laboratory Results - last 24 hr 10/02/21 10/02/21 10/02/21 00:55 12:35 12:35 WBC 8.8 RBC 3.09 L Hgb 9.3 L D Hct 28.1 L D MCV 91 MCH 30 MCHC 33 RDW 14.6 Plt Count 175 Lymph % (Auto) 26.2 [place] % (Auto) 5.8 Eos % (Auto) 0.1 Baso % (Auto) 0.2 Lymph # (Auto) 2.3 [place] # (Auto) 0.5 Eos # (Auto) 0.0 Baso # (Auto) 0.0 Seg Neutrophils % 67.7 Seg Neutrophils # 6.0 Sodium 141 Potassium 3.7 Chloride 107.2 H Carbon Dioxide 26 Anion Gap 12 BUN 15 Creatinine 0.4 L Estimated GFR > 60 BUN/Creatinine Ratio 38 Glucose 104 H Calcium 7.9 L Total Bilirubin 0.30 AST 17 ALT 15 Alkaline Phosphatase 34 L Total Protein 5.0 L Albumin 3.3 L Albumin/Globulin Ratio 1.9 Blood Type O POSITIVE Antibody Screen Negative Crossmatch See Detail 10/02/21 10/02/21 10/03/21 15:42 21:02 06:55 WBC 8.1 RBC 2.61 L Hgb 8.8 L 6.6 L 7.7 L Hct 26.1 L 20.4 L 22.7 L MCV 87 MCH 29 MCHC 34 RDW 16.1 H Plt Count 164 Lymph % (Auto) [place] % (Auto) Eos % (Auto) Baso % (Auto) Lymph # (Auto) [place] # (Auto) Eos # (Auto) Baso # (Auto) Seg Neutrophils % Seg Neutrophils # Sodium Potassium Chloride Carbon Dioxide Anion Gap BUN Creatinine Estimated GFR BUN/Creatinine Ratio Glucose Calcium Total Bilirubin AST ALT Alkaline Phosphatase Total Protein Albumin Albumin/Globulin Ratio Blood Type Antibody Screen Crossmatch 10/03/21 06:55 WBC RBC Hgb Hct MCV MCH MCHC RDW Plt Count Lymph % (Auto) [place] % (Auto) Eos % (Auto) Baso % (Auto) Lymph # (Auto) [place] # (Auto) Eos # (Auto) Baso # (Auto) Seg Neutrophils % Seg Neutrophils # Sodium 139 Potassium 4.1 Chloride 105.6 Carbon Dioxide 25 Anion Gap 13 BUN 13 Creatinine 0.4 L Estimated GFR > 60 BUN/Creatinine Ratio 33 Glucose 104 H Calcium 7.7 L Total Bilirubin AST ALT Alkaline Phosphatase Total Protein Albumin Albumin/Globulin Ratio Blood Type Antibody Screen Crossmatch
[2021-10-03 09:42] LABS: Basophils % (Auto) 0.3 % (0.0-1.8); Eosinophils % (Auto) 0.2 % (0.0-4.3); Hemoglobin 6.2 gm/dl (10.1-14.3); Lymphocytes # (Auto) 2.9 K/mm3 (1.2-5.4); Lymphocytes % (Auto) 33.9 % (13.4-35.0); Mean Corpuscular HGB Conc 34 % (30-34); Mean Corpuscular Volume 88 fl (79-97); Monocytes # (Auto) 0.6 K/mm3 (0.0-0.8); Monocytes % (Auto) 6.7 % (0.0-7.3); Platelet Count 182 K/mm3 (140-440); Red Blood Count 2.09 M/mm3 (3.65-5.03); Red Cell Distribution Width 16.4 % (13.2-15.2)
[2021-10-03 09:59] LABS: Hematocrit 18.8 % (30.3-42.9)
--- NOTE | 2021-10-03 10:08 | Cat Scan Report ---
CTA ABDOMEN AND PELVIS WITHOUT AND WITH IV CONTRAST INDICATION / CLINICAL INFORMATION: GI BLEED. TECHNIQUE: Axial CT images were obtained through the abdomen and pelvis before and after after injection of 95 c c of Omnipaque 350 IV contrast. 3 plane MIP / 3D reconstructions were produced. All CT scans at this location are performed using CT dose reduction for ALARA by means of automated exposure control. COMPARISON: CT from 10/01/2021. FINDINGS: Aorta: No significant abnormality. Renal arteries: No significant abnormality. Celiac artery: No significant abnormality. Superior Mesenteric Artery: No significant abnormality. Inferior mesenteric artery: No significant abnormality. Right Iliac Arteries: No significant abnormality.. Left Iliac Arteries: No significant abnormality.. Additional Findings: Cholelithiasis without cholecystitis. Mild scattered colonic diverticulosis. No evidence of localized bowel inflammation or obstruction. Skeletal Structures: No significant abnormality. IMPRESSION: 1. No acute abnormality. No evidence of localized bowel inflammation or obstruction. No evidence of a ctive GI bleed. 2. Cholelithiasis. Signer Name: Asher Hallman MD Signed: 10/03/2021 10:03 AM Workstation Name: [id number]
[2021-10-03] MEDS: PANTOPRAZOLE 40 MG INJ IV SCH ×2 (10:09→21:55)
[2021-10-03] MEDS ORDERED: POLYETHYLENE GLYCOL/ELECT SOLN 4000 ML PO ONE (11:00)
--- NOTE | 2021-10-03 11:23 | Consultation ---
History of Present Illness - Reason for Consult Consult date: 10/03/21 GI bleeding Requesting physician: EDEL GRIGGS - History of Present Illness 41-year-old with history of hypertension comes in for rectal bleeding for the last 3 days. Blood per rectum intermittently for the last 3 days. Patient has a history of internal hemorrhoids and diverticulosis. Similar episode about 10 years ago. Dizziness and lightheadedness. 4-5 episodes of bloody stools for 2 hours. Patient had a large bloody bowel movement while in the emergency room. No abdominal pain. No fever or chills. Earlier today she had an episode of bloody bowel movement (bright red blood per rectum) associated with syncope. Her vitals were normal once she was stabilized. She had a CT angiogram performed demonstrating no evidence of acute extravasation. Past Medical History Previous Medical History?: Yes Hypertension: Does not take any medications Additional medical history: hemorrhoids, GASTRITIS Surgical History Additional Surgical History: x3 Social History Smoking Status: Current Every Day Smoker Family History Htn Past History Past Medical History: No medical history Past Surgical History: Social history: smoking Medications and Allergies Allergies Allergy/AdvReac Type Severity Reaction Status Date / Time No Known Allergies Allergy Verified 10/01/21 10:28 Home Medications Medication Instructions Recorded Confirmed Last Taken Type No Known Home Medications [No 10/01/21 10/01/21 Unknown History Reported Home Medications] Active Meds: Active Medications Acetaminophen (Acetaminophen 325 Mg Tab) 650 mg PO Q4H PRN PRN Reason: Pain MILD(1-3)/Fever >100.5/FORTE Sodium Chloride (Nacl 0.9% 1000 Ml) 1,000 mls @ 75 mls/hr IV DIRECT MATT Last Admin: 10/02/21 15:13 Dose: 75 mls/hr Metoclopramide HCl (Metoclopramide 10 Mg/2 Ml Inj) 10 mg IV Q6H PRN PRN Reason: Nausea And Vomiting Morphine Sulfate (Morphine 2 Mg/1 Ml Inj) 2 mg IV Q4H PRN PRN Reason: Pain, Moderate (4-6) Last Admin: 10/02/21 08:25 Dose: 2 mg Ondansetron HCl (Ondansetron 4 Mg/2 Ml Inj) 4 mg IV Q8H PRN PRN Reason: Nausea And Vomiting Last Admin: 05/06/22 01:24 Dose: 4 mg Pantoprazole Sodium (Pantoprazole 40 Mg Inj) 40 mg IV BID [facility] Last Admin: 10/03/21 10:09 Dose: 40 mg Sodium Chloride (Sodium Chloride 0.9% 10 Ml Flush Syringe) 10 ml IV BID [facility] Last Admin: 10/03/21 10:09 Dose: 10 ml Sodium Chloride (Sodium Chloride 0.9% 10 Ml Flush Syringe) 10 ml IV PRN PRN PRN Reason: LINE FLUSH Review of Systems All systems: negative (see HPI) Exam - Constitutional Vitals: Temp Pulse Resp BP Pulse Ox 98.4 F 95 H 14 153/85 93 10/03/21 11:16 10/03/21 11:16 10/03/21 11:16 10/03/21 11:16 10/03/21 11:16 General appearance: Present: no acute distress - EENT Eyes: Present: EOM intact ENT: hearing intact - Neck Neck: Present: supple - Respiratory Respiratory effort: normal - Abdominal General gastrointestinal: Present: soft - Psychiatric Psychiatric: appropriate mood/affect, cooperative Results - Labs CBC & Chem 7: 10/03/21 09:07 10/03/21 06:55 Labs: Abnormal lab results 10/02/21 10/02/21 10/02/21 Range/Units 00:55 12:35 12:35 RBC 3.09 L (3.65-5.03) M/mm3 Hgb 9.3 L D (10.1-14.3) gm/dl Hct 28.1 L D (30.3-42.9) % RDW (13.2-15.2) % Chloride 107.2 H (98-107) mmol/L Creatinine 0.4 L (0.6-1.2) mg/dL Glucose 104 H (65-100) mg/dL Calcium 7.9 L (8.4-10.2) mg/dL Alkaline Phosphatase 34 L (35-129) units/L Total Protein 5.0 L (6.3-8.2) g/dL Albumin 3.3 L (3.9-5) g/dL Crossmatch See Detail 10/02/21 10/02/21 10/03/21 Range/Units 15:42 21:02 06:55 RBC 2.61 L (3.65-5.03) M/mm3 Hgb 8.8 L 6.6 L 7.7 L (10.1-14.3) gm/dl Hct 26.1 L 20.4 L 22.7 L (30.3-42.9) % RDW 16.1 H (13.2-15.2) % Chloride (98-107) mmol/L Creatinine (0.6-1.2) mg/dL Glucose (65-100) mg/dL Calcium (8.4-10.2) mg/dL Alkaline Phosphatase (35-129) units/L Total Protein (6.3-8.2) g/dL Albumin (3.9-5) g/dL Crossmatch 10/03/21 10/03/21 Range/Units 06:55 09:07 RBC 2.09 L (3.65-5.03) M/mm3 Hgb 6.2 L (10.1-14.3) gm/dl Hct 18.8 L* (30.3-42.9) % RDW 16.4 H (13.2-15.2) % Chloride (98-107) mmol/L Creatinine 0.4 L (0.6-1.2) mg/dL Glucose 104 H (65-100) mg/dL Calcium 7.7 L (8.4-10.2) mg/dL Alkaline Phosphatase (35-129) units/L Total Protein (6.3-8.2) g/dL Albumin (3.9-5) g/dL Crossmatch Assessment and Plan 41-year-old female with multiple episodes of bright red blood per rectum. CT angiogram negative for acute extravasation. Upon my review, there was some findings in the rectum which could correspond to internal hemorrhoids without extravasation. History of internal hemorrhoids with prior stigmata of bleeding (2013) and diverticulosis. Plan for colonoscopy and endoscopy tomorrow. If patient has recurrent bleeding, consider nuclear medicine bleeding study.
--- NOTE | 2021-10-03 12:25 | Consultation ---
History of Present Illness Reason for consult: other (GI bleeding) Past History Past Medical History: other (History of previous GI bleeding 10 years ago. History of hemorrhoid and diverticulosis.) Past Surgical History: Social history: smoking Family history: no significant family history Medications and Allergies Allergies Allergy/AdvReac Type Severity Reaction Status Date / Time No Known Allergies Allergy Verified 10/01/21 10:28 Home Medications Medication Instructions Recorded Confirmed Last Taken Type No Known Home Medications [No 10/01/21 10/01/21 Unknown History Reported Home Medications] Active Meds: Active Medications Acetaminophen (Acetaminophen 325 Mg Tab) 650 mg PO Q4H PRN PRN Reason: Pain MILD(1-3)/Fever >100.5/FORTE Sodium Chloride (Nacl 0.9% 1000 Ml) 1,000 mls @ 75 mls/hr IV DIRECT [facility] Last Admin: 10/02/21 15:13 Dose: 75 mls/hr Metoclopramide HCl (Metoclopramide 10 Mg/2 Ml Inj) 10 mg IV Q6H PRN PRN Reason: Nausea And Vomiting Morphine Sulfate (Morphine 2 Mg/1 Ml Inj) 2 mg IV Q4H PRN PRN Reason: Pain, Moderate (4-6) Last Admin: 10/02/21 08:25 Dose: 2 mg Ondansetron HCl (Ondansetron 4 Mg/2 Ml Inj) 4 mg IV Q8H PRN PRN Reason: Nausea And Vomiting Last Admin: 10/02/21 01:24 Dose: 4 mg Pantoprazole Sodium (Pantoprazole 40 Mg Inj) 40 mg IV BID [facility] Last Admin: 10/03/21 10:09 Dose: 40 mg Sodium Chloride (Sodium Chloride 0.9% 10 Ml Flush Syringe) 10 ml IV BID [facility] Last Admin: 10/03/21 10:09 Dose: 10 ml Sodium Chloride (Sodium Chloride 0.9% 10 Ml Flush Syringe) 10 ml IV PRN PRN PRN Reason: LINE FLUSH Review of Systems All systems: negative Constitutional: other (Weakness) Gastrointestinal: other (Bright red rectal bleeding) Physical Examination Vital signs: Vital Signs Temp Pulse Resp BP Pulse Ox 98.8 F 134 H 16 170/111 100 10/01/21 10:22 10/01/21 10:10/01/21 10:10/01/21 10:10/01/21 10:22 General appearance: no acute distress, alert (Having chills and feeling cold but no fever), appears uncomfortable, other Eyes: non-icteric ENT: oropharynx moist Neck: supple, no lymphadenopathy, no JVD Effort: normal Ascultation: Bilateral: clear Cardiovascular: other (Tachycardia) Gastrointestinal: normoactive bowel sounds, soft, non-tender, other (Obese) Extremities: no cyanosis, no edema Musculoskeletal: no deformities Gait: other (Not examined) normal mental status mood appropriate Results - Laboratory Findings CBC and BMP: 10/03/21 09:07 10/03/21 06:55 PT/INR, D-dimer PT 13.5 Sec. (12.2-14.9) 10/01/21 12:15 INR 0.93 (0.87-1.13) 10/01/21 12:15 Abnormal lab findings: Abnormal Labs 10/01/21 10/01/21 10/01/21 12:15 12:15 23:20 WBC RBC 2.58 L Hgb 7.8 L Hct 24.6 L RDW Lymphocytes % (Manual) Lymphocytes # (Manual) Chloride Creatinine 0.5 L Glucose 126 H POC Glucose 159 H Calcium Alkaline Phosphatase Total Protein 5.8 L Albumin 3.6 L Crossmatch 10/01/21 10/02/21 10/02/21 23:29 00:55 12:35 WBC 13.1 H RBC 1.77 L Hgb 5.4 L* Hct 16.8 L* D RDW Lymphocytes % (Manual) 42.0 H Lymphocytes # (Manual) 5.5 H Chloride 107.2 H Creatinine 0.4 L Glucose 104 H POC Glucose Calcium 7.9 L Alkaline Phosphatase 34 L Total Protein 5.0 L Albumin 3.3 L Crossmatch See Detail 10/02/21 10/02/21 10/02/21 12:35 15:42 21:02 WBC RBC 3.09 L Hgb 9.3 L D 8.8 L 6.6 L Hct 28.1 L D 26.1 L 20.4 L RDW Lymphocytes % (Manual) Lymphocytes # (Manual) Chloride Creatinine Glucose POC Glucose Calcium Alkaline Phosphatase Total Protein Albumin Crossmatch 10/03/21 10/03/21 10/03/21 06:55 06:55 09:07 WBC RBC 2.61 L 2.09 L Hgb 7.7 L 6.2 L Hct 22.7 L 18.8 L* RDW 16.1 H 16.4 H Lymphocytes % (Manual) Lymphocytes # (Manual) Chloride Creatinine 0.4 L Glucose 104 H POC Glucose Calcium 7.7 L Alkaline Phosphatase Total Protein Albumin Crossmatch Assessment and Plan Impression: Lower GI bleeding. Hemorrhagic shock Severe anemia secondary to blood loss Recommendation: Continue with blood transfusion as needed Continue with IV fluids. IV Protonix and further work-up as per GI. Total critical care time 31-minute
[2021-10-03] MEDS: ACETAMINOPHEN 325 MG TAB PO PRN (12:37)
--- NOTE | 2021-10-03 13:14 | Progress Note ---
Assessment and Plan Assessment and plan: 41-year-old with history of hypertension comes in for rectal bleeding for the last 3 days. Blood per rectum intermittently for the last 3 days. Patient has a history of internal hemorrhoids and diverticulosis. Similar episode about 10 years ago. Dizziness and lightheadedness. 4-5 episodes of bloody stools for 2 hours. Patient had a large bloody bowel movement while in the emergency room. No abdom inal pain. No fever or chills. 10/02: Patient seen and examined, she is clinically stable now, she is S/P 3 units PRBC, she reports that she has had Bleeding hemorrhoids in the past. Will continue in the IMCU, till GI procedure, continue PPI. 10/03: Patient had a recurrent hypotensive episode with syncope following large bloody bowel movement filled with blood and clots. Underwent an emergent stat CTA without evidence of extravasation. I did discuss with vascular/IR physician also discussed with GI physician at bedside who plans for an endoscopy tomorrow to evaluate for possible hemorrhoidal bleed. Additional 2 units of packed red blood cell has been ordered and transfusion along with FFP. I have also ordered a serial H&H checks. Patient was transferred to the ICU for closer monitoring consult placed for human development professor also discussed with them. Critical care time 90 minutes I called (Hi Hess) is primary point of contact, she can be reached at [phone]. As found in assistant case manager note already picked up and said it was the wrong number. I also called [phone] as found in the registration for the patient's sister was also told that it was a wrong number by a man who picked up as a result could not update any family member. - Patient Problems (1) Lower GI bleed Current Visit: Yes Status: Acute Plan to address problem: Patient has bright red blood per rectum IV fluids and transfuse as necessary Serial hemoglobin and hematocrit Patient has a history of internal hemorrhoids GI consult requested Transfuse as necessary Transfuse if hemoglobin less than 7 (2) Symptomatic anemia Current Visit: Yes Status: Acute Qualifiers: Anemia type: unspecified type Qualified Code(s): D64.9 - Anemia, unspecified Plan to address problem: From chronic bradycardia Check hematocrit and hemoglobin every 8 hours (3) Hypertension Current Visit: Yes Status: Chronic Qualifiers: Hypertension type: primary hypertension Qualified Code(s): I10 - Essential (primary) hypertension Plan to address problem: Borderline Initiate blood pressure medicines if necessary (4) Vasogenic shock (5) autonomic dysfunction status post rapid response/CODE BLUE-with spontaneous recovery without intervention (6) DVT prophylaxis Current Visit: Yes Status: Acute Plan to address problem: On SCDs and GI prophylaxis (7) Advance care planning Current Visit: Yes Status: Acute Plan to address problem: Disease education conducted, care plan discussed, diagnosis discussed, prognosis discussed. Patient is full code. Patient acknowledges understanding and agreement with care plan. +30 minutes. The high probability of a clinically significant, sudden or life threatening deterioration of the [hematology, cardiovascular] system(s) required my full and direct attention, intervention and personal management. The aggregate critical care time was [90] minutes. This time is in addition to time spent performing reported procedures but includes the following: [X] Data Review and interpretation [X] Patient assessment and monitoring of vital signs [X] Documentation [X] Medication orders and management History Interval history: Patient seen and examined this morning. Patient had CODE BLUE called as she experienced a syncopal episode following bowel movement with large bloody stool and blood clots noted. Hospitalist Physical - Physical exam Narrative exam: VITAL SIGNS: Reviewed. GENERAL: The patient appears very weak returned to spontaneous respiration without intervention lying on the floor on my exam vital signs as documented. HEAD: No signs of head trauma. EYES: Pupils are equal. Extraocular motions intact. EARS: Hearing grossly intact. MOUTH: Oropharynx is normal. NECK: No adenopathy, no JVD. CHEST: Chest with diminished breath sounds bilaterally. No wheezes, rales, or rhonchi. CARDIAC: Tachycardic with regular rhythm. S1 and S2, without murmurs, gallops, or rubs. VASCULAR: No Edema. Peripheral pulses normal and equal in all extremities. ABDOMEN: Soft, non tender and non distended. No rebound or guarding, and no masses palpated. Bowel Sounds normal. MUSCULOSKELETAL: Good range of motion of all major joints. Extremities without clubbing, cyanosis or edema. NEUROLOGIC EXAM: Alert and oriented x 3 No focal sensory or strength deficits. Speech normal. Follows commands. PSYCHIATRIC: Mood anxious SKIN: detail exam as documented in skin assessment - Constitutional Vitals: Temp Pulse Resp BP Pulse Ox 98.7 F 96 H 10 L 140/96 95 10/03/21 12:46 10/03/21 13:00 10/03/21 13:00 10/03/21 13:00 10/03/21 13:00 General appearance: Present: no acute distress Results - Labs CBC & Chem 7: 10/03/21 09:07 10/03/21 06:55 Labs: Laboratory Last Values WBC 8.5 K/mm3 (4.5-11.0) 10/03/21 09:07 RBC 2.09 M/mm3 (3.65-5.03) L 10/03/21 09:07 Hgb 6.2 gm/dl (10.1-14.3) L 10/03/21 09:07 Hct 18.8 % (30.3-42.9) L* 10/03/21 09:07 MCV 88 fl (79-97) 10/03/21 09:07 MCH 30 pg (28-32) 10/03/21 09:07 MCHC 34 % (30-34) 10/03/21 09:07 RDW 16.4 % (13.2-15.2) H 10/03/21 09:07 Plt Count 182 K/mm3 (140-440) 10/03/21 09:07 Lymph % (Auto) 33.9 % (13.4-35.0) 10/03/21 09:07 Mercer % (Auto) 6.7 % (0.0-7.3) 10/03/21 09:07 Eos % (Auto) 0.2 % (0.0-4.3) 10/03/21 09:07 Baso % (Auto) 0.3 % (0.0-1.8) 10/03/21 09:07 Lymph # (Auto) 2.9 K/mm3 (1.2-5.4) 10/03/21 09:07 Mercer # (Auto) 0.6 K/mm3 (0.0-0.8) 10/03/21 09:07 Eos # (Auto) 0.0 K/mm3 (0.0-0.4) 10/03/21 09:07 Baso # (Auto) 0.0 K/mm3 (0.0-0.1) 10/03/21 09:07 Add Manual Diff Complete 10/01/21 23:29 Total Counted 100 10/01/21 23:29 Seg Neutrophils % 58.9 % (40.0-70.0) 10/03/21 09:07 Seg Neuts % (Manual) 57.0 % (40.0-70.0) 10/01/21 23:29 Band Neutrophils % 0 % 10/01/21 23:29 Lymphocytes % (Manual) 42.0 % (13.4-35.0) H 10/01/21 23:29 Reactive Lymphs % (Man) 0 % 10/01/21 23:29 Monocytes % (Manual) 0 % (0.0-7.3) 10/01/21 23: Eosinophils % (Manual) 0 % (0.0-4.3) 10/01/21 23: Basophils % (Manual) 1.0 % (0.0-1.8) 10/01/21 23: Metamyelocytes % 0 % 10/01/21 23: Myelocytes % 0 % 10/01/21 23: Promyelocytes % 0 % 10/01/21 23: Blast Cells % 0 % 10/01/21 23:29 Nucleated RBC % Not Reportable 10/01/21 23:29 Seg Neutrophils # 5.0 K/mm3 (1.8-7.7) 10/03/21 09:07 Seg Neutrophils # Man 7.5 K/mm3 (1.8-7.7) 10/01/21 23:29 Band Neutrophils # 0.0 K/mm3 10/01/21 23:29 Lymphocytes # (Manual) 5.5 K/mm3 (1.2-5.4) H 10/01/21 23:29 Abs React Lymphs (Man) 0.0 K/mm3 10/01/21 23:29 Monocytes # (Manual) 0.0 K/mm3 (0.0-0.8) 10/01/21 23:29 Eosinophils # (Manual) 0.0 K/mm3 (0.0-0.4) 10/01/21 23: Basophils # (Manual) 0.1 K/mm3 (0.0-0.1) 10/01/21 23:29 Metamyelocytes # 0.0 K/mm3 10/01/21 23:29 Myelocytes # 0.0 K/mm3 10/01/21 23: Promyelocytes # 0.0 K/mm3 10/01/21 23:29 Blast Cells # 0.0 K/mm3 10/01/21 23:29 WBC Morphology Not Reportable 10/01/21 23:29 Hypersegmented Neuts Not Reportable 10/01/21 23:29 Hyposegmented Neuts Not Reportable 10/01/21 23:29 Hypogranular Neuts Not Reportable 10/01/21 23:29 Smudge Cells Not Reportable 10/01/21 23:29 Toxic Granulation Not Reportable 10/01/21 23:29 Toxic Vacuolation Not Reportable 10/01/21 23:29 Dohle Bodies Not Reportable 10/01/21 23:29 Pelger-Huet Anomaly Not Reportable 10/01/21 23:29 Gómez Rods Not Reportable 10/01/21 23:29 Platelet Estimate Consistent w auto 10/01/21 23:29 Clumped Platelets Not Reportable 10/01/21 23:29 Plt Clumps, EDTA Not Reportable 10/01/21 23:29 Large Platelets Not Reportable 10/01/21 23:29 Giant Platelets Not Reportable 10/01/21 23:29 Platelet Satelliting Not Reportable 10/01/21 23:29 Plt Morphology Comment Not Reportable 10/01/21 23:29 RBC Morphology Not Reportable 10/01/21 23:29 Dimorphic RBCs Not Reportable 10/01/21 23:29 Polychromasia Not Reportable 10/01/21 23:29 Hypochromasia 3+ 10/01/21 23:29 Poikilocytosis Not Reportable 10/01/21 23:29 Anisocytosis Not Reportable 10/01/21 23:29 Microcytosis Not Reportable 10/01/21 23:29 Macrocytosis Not Reportable 10/01/21 23:29 Spherocytes Not Reportable 10/01/21 23:29 Pappenheimer Bodies Not Reportable 10/01/21 23:29 Sickle Cells Not Reportable 10/01/21 23:29 Target Cells Not Reportable 10/01/21 23:29 Tear Drop Cells Not Reportable 10/01/21 23:29 Ovalocytes Not Reportable 10/01/21 23:29 Helmet Cells Not Reportable 10/01/21 23:29 Watkins-Lorton Bodies Not Reportable 10/01/21 23:29 [place] Rings Not Reportable 10/01/21 23:29 Octavio Cells Not Reportable 10/01/21 23:29 Bite Cells Not Reportable 10/01/21 23:29 Crenated Cell Not Reportable 10/01/21 23:29 Elliptocytes Not Reportable 10/01/21 23:29 Acanthocytes (Spur) Not Reportable 10/01/21 23:29 Rouleaux Not Reportable 10/01/21 23:29 Hemoglobin C Crystals Not Reportable 10/01/21 23:29 Schistocytes Not Reportable 10/01/21 23:29 Malaria parasites Not Reportable 10/01/21 23:29 Brendan Bodies Not Reportable 10/01/21 23:29 Hem Pathologist Commnt No 10/01/21 23:29 PT 13.5 Sec. (12.2-14.9) 10/01/21 12:15 INR 0.93 (0.87-1.13) 10/01/21 12:15 APTT 27.6 Sec. (24.2-36.6) 10/01/21 12:15 Sodium 139 mmol/L (137-145) 10/03/21 06:55 Potassium 4.1 mmol/L (3.6-5.0) 10/03/21 06:55 Chloride 105.6 mmol/L (98-107) 10/03/21 06:55 Carbon Dioxide 25 mmol/L (22-30) 10/03/21 06:55 Anion Gap 13 mmol/L 10/03/21 06:55 BUN 13 mg/dL (7-17) 10/03/21 06:55 Creatinine 0.4 mg/dL (0.6-1.2) L 10/03/21 06:55 Estimated GFR > 60 ml/min 10/03/21 06:55 BUN/Creatinine Ratio 33 % 10/03/21 06:55 Glucose 104 mg/dL (65-100) H 10/03/21 06:55 POC Glucose 159 mg/dL (70-105) H 10/01/21 23:20 Lactic Acid 1.60 mmol/L (0.7-2.0) 10/01/21 12:15 Calcium 7.7 mg/dL (8.4-10.2) L 10/03/21 06:55 Total Bilirubin 0.30 mg/dL (0.1-1.2) 10/02/21 12:35 AST 17 units/L (5-40) 10/02/21 12:35 ALT 15 units/L (7-56) 10/02/21 12:35 Alkaline Phosphatase 34 units/L (35-129) L 10/02/21 12:35 Total Protein 5.0 g/dL (6.3-8.2) L 10/02/21 12:35 Albumin 3.3 g/dL (3.9-5) L 10/02/21 12:35 Albumin/Globulin Ratio 1.9 % 10/02/21 12:35 Blood Type O POSITIVE 10/02/21 00:55 Antibody Screen Negative 10/02/21 00:55 Crossmatch See Detail 10/02/21 00:55 [place]/IV: Voiding Method External Female Catheter Active Medications - Current Medications Current Medications: Generic Name Dose Route Start Last Admin Trade Name Freq PRN Reason Stop Dose Admin Acetaminophen 650 mg 10/01/21 19:03 10/03/21 12:37 Acetaminophen 325 Mg Tab PO 650 mg Q4H PRN Administration Pain MILD(1-3)/Fever >100.5/FROTE Sodium Chloride 1,000 mls @ 75 mls/hr 10/01/21 19:15 10/02/21 15:13 Nacl 0.9% 1000 Ml IV 75 mls/hr DIRECT MATT Administration Metoclopramide HCl 10 mg 10/01/21 19:03 Metoclopramide 10 Mg/2 Ml Inj IV Q6H PRN Nausea And Vomiting Morphine Sulfate 2 mg 10/01/21 19:03 10/02/21 08:25 Morphine 2 Mg/1 Ml Inj IV 2 mg Q4H PRN Administration Pain, Moderate (4-6) Ondansetron HCl 4 mg 10/01/21 19:03 10/02/21 01:24 Ondansetron 4 Mg/2 Ml Inj IV 4 mg Q8H PRN Administration Nausea And Vomiting Pantoprazole Sodium 40 mg 10/02/21 10:00 10/03/21 10:09 Pantoprazole 40 Mg Inj IV 40 mg BID MATT Administration Sodium Chloride 10 ml 10/01/21 22:00 10/03/21 10:09 Sodium Chloride 0.9% 10 Ml Flush Syringe IV 10 ml BID MATT Administration Sodium Chloride 10 ml 10/01/21 19:03 Sodium Chloride 0.9% 10 Ml Flush Syringe IV PRN PRN LINE FLUSH
[2021-10-03 16:40] LABS: HCG Qualitative,Urine Negative (Negative)
[2021-10-03] MEDS: SODIUM CHLORIDE 0.9% 1000 ML 1,000 ML IV SCH (18:23)
[2021-10-03] MEDS: MORPHINE 2 MG/1 ML INJ IV PRN (21:55)
[2021-10-03 23:42] LABS: Hematocrit 24.8 % (30.3-42.9); Hemoglobin 8.4 gm/dl (10.1-14.3)
[2021-10-04] MEDS: DEXTROSE 5% IN WATER 1,000 ML IV SCH ×2 (06:15→21:45)
[2021-10-04] MEDS ORDERED: DEXTROSE 10% *Hypoglycemia IV PRN (07:32)
[2021-10-04] MEDS ORDERED: WATER FOR IRRIG STERILE 1,000 ML BOTTLE ONE (07:49)
[2021-10-04] MEDS ORDERED: SODIUM CHLORIDE 0.45% IV ONE (07:49)
[2021-10-04] MEDS ORDERED: DEXTROSE 50% IN WATER (25GM) 50 ML SYRINGE IV PRN (07:59)
[2021-10-04] MEDS ORDERED: SODIUM CHLORIDE 0.9% 1000 ML 0 ML ONE (08:11)
[2021-10-04] MEDS ORDERED: propofoL 200 MG/20 ML VIAL IV ONE ×2 (08:23→08:27)
[2021-10-04] MEDS ORDERED: LIDOCAINE MPF (2%) 20 MG/1 ML VIAL 5 ML ONE (08:23)
[2021-10-04] MEDS ORDERED: WATER FOR IRRIG STERILE 250 ML BOTTLE IR ONE (08:36)
[2021-10-04] MEDS ORDERED: EPINEPHrine 1 MG/10 ML SYRINGE ONE (08:36)
--- NOTE | 2021-10-04 08:43 | Anesthesia Consultation ---
Anesthesia Consult and Med Hx Date of service: 10/04/21 - Airway Anesthetic Teeth Evaluation: Good ROM Head & Neck: Adequate Mental/Hyoid Distance: Adequate Mallampati Class: Class II Intubation Access Assessment: Probably Good - Pulmonary Exam CTA: Yes - Cardiac Exam Cardiac Exam: RRR - Pre-Operative Health Status ASA Pre-Surgery Classification: ASA2 Proposed Anesthetic Plan: MAC - Pulmonary Hx Smoking: Yes (1/2 PPD x 10 years - Quit 8 years ago) Hx Asthma: No COPD: No Hx Pneumonia: No Hx Sleep Apnea: No - Cardiovascular System Hx Hypertension: Yes (Chronic-since teenager) - Central Nervous System Hx Seizures: No CVA: No Hx Psychiatric Problems: No - Gastrointestinal Hx Gastroesophageal Reflux Disease: No - Endocrine Hx Renal Disease: No Hx Liver Disease: No Hx Non-Insulin Dependent Diabetes: No Hx Thyroid Disease: No - Hematic Hx Anemia: Yes (Hgb 8.4 today) Hx Sickle Cell Disease: No - Other Systems Hx Alcohol Use: No Hx Substance Use: No Hx Cancer: No Hx Obesity: Yes (BMI 39) - Additional Comments Anesthesia Medical History Comments: no hx of anesthesia complications
--- NOTE | 2021-10-04 08:44 | Anesthesia Day of Surgery ---
Anesthesia Day of Surgery - Day of Surgery Patient Examined: Yes Patient H&P Reviewed: Yes Patient is NPO: Yes
[2021-10-04] MEDS: PANTOPRAZOLE 40 MG INJ IV SCH ×2 (09:51→21:43)
--- NOTE | 2021-10-04 10:10 | Progress Note ---
<NATALEEBROOKE GenieRaymon - Last Filed: 10/04/21 12:38> Assessment and Plan Assessment and plan: This is a 40-year-old female with HTN, diverticulitis with prior diverticulitis bleed, internal hemorrhoids, anemia admitted with GI bleed Neuro: s/p autonomic dysfunction status post rapid response -Avoid delirium -Reorientation as needed -Maintain sleep-wake cycle -As needed analgesia Cardiac: h/o HTN -Blood pressure monitoring per protocol -Per documentation, patient stated she does not take any antihypertensive medications and controls her BP with apple cider vinegar Respiratory: Current nicotine abuse -Supplemental oxygen as needed -SPO2 monitor -Pulmonary hygiene -Nicotine cessation counseling provided GI: GI bleed, h/o diverticulitis with prior diverticulitis bleed, MO -GI, CCM and IR consulted, appreciate recommendations -24 hours -10/04 EGD/colonoscopy revealed 2 cm hiatal hernia, findings consistent with ref lux or eosinophilic esophagitis, scattered diverticulosis throughout the entire colon with no active bleeding, small nonbleeding internal hemorrhoids -GI recommends pantoprazole 20 mg daily and IR consult if recurrent large upper GI bleed with hemodynamic instability -Clear liquid diet -IR consult if recurrent large upper GI bleed with hemodynamic instability -CTA abdomen/pelvis showed no acute abnormality, no evidence of localized bowel inflammation or obstruction, no evidence of active GI bleed, cholelithiasis -IR recommends nuclear brain bleeding study if recurrent bleeding -CT abdomen/pelvis with contrast showed cholelithiasis, no source of GI bleeding detected on standard CT with contrast -CLD, advance as tolerated -BR: not inidated at this time : Hypokalemia -Renally dose medications -Avoid nephrotoxic medications -Potassium repleted with p.o. KCl -Add on lab of magnesium pending -Trend BMP -Currently on D5 half-normal saline IVF ID: NAD -f/u blood culture -Monitor WBC and temperature curve Endo: NAD -Avoid hypoglycemia Heme: ABLA, s/p hemorrhagic shock, h/o anemia -Admit H/H 7.8, 24.6 which decreased to 5.4/16.8 on 10/01 -Patient had a presyncopal episode after profuse rectal bleeding on 10/03 in the IMCU and was transferred to ICU -Trend CBC -Transfuse hemoglobin less than 7 -S/p 6 units PRBC and 2 units FFP -Monitor for signs of bleeding -SCDs to BLE while in bed -Avoid chemical anticoagulation in setting of recent GI bleed The high probability of a clinically significant, sudden or life threatening deterioration of the [hematology, cardiovascular] system(s) required my full and direct attention, intervention and personal management. The aggregate critical care time was [90] minutes. This time is in addition to time spent performing reported procedures but includes the following: [X] Data Review and interpretation [X] Patient assessment and monitoring of vital signs [X] Documentation [X] Medication orders and management Disposition Plan: transfer to [facility] Total Time Spent with Patient (Minutes): 60 History Interval history: This is a 40 year old female with HTN, diverticulitis with prior diverticulitis bleed, internal hemorrhoids and chronic anemia who presents to the hospital on 10/01 with complaints of hematochezia which started 3 days prior with dizziness and lightheadedness. Work-up in the emergency department revealed H/H of 7.8/24, CT abdomen and pelvis showed cholelithiasis with no source of GI bleeding. Patient was admitted to the hospital service with consult to GI to [facility] for close monitoring. Hospital course to date: 10/04: Patient had EGD this morning which showed extensive diverticulitis throughout colon without any specific source of bleeding identified. Patient has been cleared for diet and we will resume clear liquid diet. GI recommended if patient has recurrent large GI bleeding with hemodynamic instability IR should be notified immediately. Hospitalist Physical - Constitutional Vitals: Temp Pulse Resp BP Pulse Ox 98.9 F 84 11 L 158/75 100 10/04/21 07:05 10/04/21 09:00 10/04/21 09:00 10/04/21 09:00 10/04/21 09:00 General appearance: Present: no acute distress, well-nourished, obese - EENT Eyes: Present: PERRL, EOM intact ENT: hearing intact, clear oral mucosa, dentition normal - Neck Neck: Present: supple, normal ROM - Respiratory Respiratory effort: normal Respiratory: bilateral: CTA, diminished - Cardiovascular Rhythm: regular Heart Sounds: Present: S1 & S2. Absent: systolic murmur, diastolic murmur - Extremities Extremities: no ischemia, pulses intact, pulses symmetrical, No edema, normal temperature, normal color, Full ROM Peripheral Pulses: within normal limits - Abdominal General gastrointestinal: soft, non-tender, non-distended, normal bowel sounds - Integumentary Integumentary: Present: warm, dry - Psychiatric Psychiatric: appropriate mood/affect, cooperative - Neurologic Neurologic: CNII-XII intact, no focal deficits, moves all extremities - Allied Health Allied health notes reviewed: nursing, RT Results - Labs CBC & Chem 7: 10/04/21 10:15 10/04/21 10:15 Labs: Laboratory Last Values WBC 8.5 K/mm3 (4.5-11.0) 10/03/21 09:07 RBC 2.09 M/mm3 (3.65-5.03) L 10/03/21 09:07 Hgb 8.4 gm/dl (10.1-14.3) L 10/03/21 22:17 Hct 24.8 % (30.3-42.9) L D 10/03/21 22:17 MCV 88 fl (79-97) 10/03/21 09:07 MCH 30 pg (28-32) 10/03/21 09:07 MCHC 34 % (30-34) 10/03/21 09:07 RDW 16.4 % (13.2-15.2) H 10/03/21 09:07 Plt Count 182 K/mm3 (140-440) 10/03/21 09:07 Lymph % (Auto) 33.9 % (13.4-35.0) 10/03/21 09:07 Hale % (Auto) 6.7 % (0.0-7.3) 10/03/21 09:07 Eos % (Auto) 0.2 % (0.0-4.3) 10/03/21 09:07 Baso % (Auto) 0.3 % (0.0-1.8) 10/03/21 09:07 Lymph # (Auto) 2.9 K/mm3 (1.2-5.4) 10/03/21 09:07 Hale # (Auto) 0.6 K/mm3 (0.0-0.8) 10/03/21 09:07 Eos # (Auto) 0.0 K/mm3 (0.0-0.4) 10/03/21 09:07 Baso # (Auto) 0.0 K/mm3 (0.0-0.1) 10/03/21 09:07 Add Manual Diff Complete 10/01/21 23:29 Total Counted 100 10/01/21 23:29 Seg Neutrophils % 58.9 % (40.0-70.0) 10/03/21 09:07 Seg Neuts % (Manual) 57.0 % (40.0-70.0) 10/01/21 23:29 Band Neutrophils % 0 % 10/01/21 23:29 Lymphocytes % (Manual) 42.0 % (13.4-35.0) H 10/01/21 23:29 Reactive Lymphs % (Man) 0 % 10/01/21 23:29 Monocytes % (Manual) 0 % (0.0-7.3) 10/01/21 23:29 Eosinophils % (Manual) 0 % (0.0-4.3) 10/01/21 23:29 Basophils % (Manual) 1.0 % (0.0-1.8) 10/01/21 23: Metamyelocytes % 0 % 10/01/21 23:29 Myelocytes % 0 % 10/01/21 23:29 Promyelocytes % 0 % 10/01/21 23:29 Blast Cells % 0 % 10/01/21 23:29 Nucleated RBC % Not Reportable 10/01/21 23:29 Seg Neutrophils # 5.0 K/mm3 (1.8-7.7) 10/03/21 09:07 Seg Neutrophils # Man 7.5 K/mm3 (1.8-7.7) 10/01/21 23:29 Band Neutrophils # 0.0 K/mm3 10/01/21 23:29 Lymphocytes # (Manual) 5.5 K/mm3 (1.2-5.4) H 10/01/21 23:29 Abs React Lymphs (Man) 0.0 K/mm3 10/01/21 23:29 Monocytes # (Manual) 0.0 K/mm3 (0.0-0.8) 10/01/21 23:29 Eosinophils # (Manual) 0.0 K/mm3 (0.0-0.4) 10/01/21 23:29 Basophils # (Manual) 0.1 K/mm3 (0.0-0.1) 10/01/21 23:29 Metamyelocytes # 0.0 K/mm3 10/01/21 23:29 Myelocytes # 0.0 K/mm3 10/01/21 23:29 Promyelocytes # 0.0 K/mm3 10/01/21 23:29 Blast Cells # 0.0 K/mm3 10/01/21 23:29 WBC Morphology Not Reportable 10/01/21 23:29 Hypersegmented Neuts Not Reportable 10/01/21 23:29 Hyposegmented Neuts Not Reportable 10/01/21 23:29 Hypogranular Neuts Not Reportable 10/01/21 23:29 Smudge Cells Not Reportable 10/01/21 23:29 Toxic Granulation Not Reportable 10/01/21 23:29 Toxic Vacuolation Not Reportable 10/01/21 23:29 Dohle Bodies Not Reportable 10/01/21 23:29 Pelger-Huet Anomaly Not Reportable 10/01/21 23:29 Gómez Rods Not Reportable 10/01/21 23:29 Platelet Estimate Consistent w auto 10/01/21 23:29 Clumped Platelets Not Reportable 10/01/21 23:29 Plt Clumps, EDTA Not Reportable 10/01/21 23:29 Large Platelets Not Reportable 10/01/21 23:29 Giant Platelets Not Reportable 10/01/21 23:29 Platelet Satelliting Not Reportable 10/01/21 23:29 Plt Morphology Comment Not Reportable 10/01/21 23:29 RBC Morphology Not Reportable 10/01/21 23:29 Dimorphic RBCs Not Reportable 10/01/21 23:29 Polychromasia Not Reportable 10/01/21 23:29 Hypochromasia 3+ 10/01/21 23:29 Poikilocytosis Not Reportable 10/01/21 23:29 Anisocytosis Not Reportable 10/01/21 23:29 Microcytosis Not Reportable 10/01/21 23:29 Macrocytosis Not Reportable 10/01/21 23:29 Spherocytes Not Reportable 10/01/21 23:29 Pappenheimer Bodies Not Reportable 10/01/21 23:29 Sickle Cells Not Reportable 10/01/21 23:29 Target Cells Not Reportable 10/01/21 23:29 Tear Drop Cells Not Reportable 10/01/21 23:29 Ovalocytes Not Reportable 10/01/21 23:29 Helmet Cells Not Reportable 10/01/21 23:29 Watkins-Valders Bodies Not Reportable 10/01/21 23:29 [place] Rings Not Reportable 10/01/21 23:29 Octavio Cells Not Reportable 10/01/21 23:29 Bite Cells Not Reportable 10/01/21 23:29 Crenated Cell Not Reportable 10/01/21 23:29 Elliptocytes Not Reportable 10/01/21 23:29 Acanthocytes (Spur) Not Reportable 10/01/21 23:29 Rouleaux Not Reportable 10/01/21 23:29 Hemoglobin C Crystals Not Reportable 10/01/21 23:29 Schistocytes Not Reportable 10/01/21 23:29 Malaria parasites Not Reportable 10/01/21 23:29 Brendan Bodies Not Reportable 10/01/21 23:29 Hem Pathologist Commnt No 10/01/21 23:29 PT 13.5 Sec. (12.2-14.9) 10/01/21 12:15 INR 0.93 (0.87-1.13) 10/01/21 12:15 APTT 27.6 Sec. (24.2-36.6) 10/01/21 12:15 Sodium 139 mmol/L (137-145) 10/03/21 06:55 Potassium 4.1 mmol/L (3.6-5.0) 10/03/21 06:55 Chloride 105.6 mmol/L (98-107) 10/03/21 06:55 Carbon Dioxide 25 mmol/L (22-30) 10/03/21 06:55 Anion Gap 13 mmol/L 10/03/21 06:55 BUN 13 mg/dL (7-17) 10/03/21 06:55 Creatinine 0.4 mg/dL (0.6-1.2) L 10/03/21 06:55 Estimated GFR > 60 ml/min 10/03/21 06:55 BUN/Creatinine Ratio 33 % 10/03/21 06:55 Glucose 104 mg/dL (65-100) H 10/03/21 06:55 POC Glucose 76 mg/dL (70-105) 10/04/21 05:55 Lactic Acid 1.60 mmol/L (0.7-2.0) 10/01/21 12:15 Calcium 7.7 mg/dL (8.4-10.2) L 10/03/21 06:55 Total Bilirubin 0.30 mg/dL (0.1-1.2) 10/02/21 12:35 AST 17 units/L (5-40) 10/02/21 12:35 ALT 15 units/L (7-56) 10/02/21 12:35 Alkaline Phosphatase 34 units/L (35-129) L 10/02/21 12:35 Total Protein 5.0 g/dL (6.3-8.2) L 10/02/21 12:35 Albumin 3.3 g/dL (3.9-5) L 10/02/21 12:35 Albumin/Globulin Ratio 1.9 % 10/02/21 12:35 Urine HCG, Qual Negative (Negative) 10/03/21 16:15 Blood Type O POSITIVE 10/02/21 00:55 Antibody Screen Negative 10/02/21 00:55 Crossmatch See Detail 10/02/21 00:55 [place]/IV: Voiding Method External Female Catheter Active Medications - Current Medications Current Medications: Generic Name Dose Route Start Last Admin Trade Name Freq PRN Reason Stop Dose Admin Acetaminophen 650 mg 10/01/21 19:03 10/03/21 12:37 Acetaminophen 325 Mg Tab PO 650 mg Q4H PRN Administration Pain MILD(1-3)/Fever >100.5/FORTE Dextrose 50 ml 10/04/21 07:59 Dextrose 50% In Water (25gm) 50 Ml Syringe IV PRN PRN HYPOGLYCEMIA Dextrose 1,000 mls @ 75 mls/hr 10/04/21 07:00 10/04/21 06:15 D5w IV 75 mls/hr DIRECT MATT Administration Metoclopramide HCl 10 mg 10/01/21 19:03 Metoclopramide 10 Mg/2 Ml Inj IV Q6H PRN Nausea And Vomiting Morphine Sulfate 2 mg 10/01/21 19:03 10/03/21 21:55 Morphine 2 Mg/1 Ml Inj IV 2 mg Q4H PRN Administration Pain, Moderate (4-6) Ondansetron HCl 4 mg 10/01/21 19:03 10/02/21 01:24 Ondansetron 4 Mg/2 Ml Inj IV 4 mg Q8H PRN Administration Nausea And Vomiting Pantoprazole Sodium 40 mg 10/02/21 10:00 10/04/21 09:51 Pantoprazole 40 Mg Inj IV 40 mg BID MATT Administration Sodium Chloride 10 ml 10/01/21 22:00 10/04/21 09:52 Sodium Chloride 0.9% 10 Ml Flush Syringe IV 10 ml BID MATT Administration Sodium Chloride 10 ml 10/01/21 19:03 Sodium Chloride 0.9% 10 Ml Flush Syringe IV PRN PRN LINE FLUSH <INDUEDLE Montano - Last Filed: 10/04/21 13:59> Assessment and Plan Assessment and plan: I saw and evaluated the patient. I agree with the findings and the plan of care as documented in the Nurse Practitioner's~note, with the following corrections and additions. Hospitalist Physical - Constitutional Vitals: Temp Pulse Resp BP Pulse Ox 98.9 F 86 16 158/91 99 10/04/21 11:25 10/04/21 13:00 10/04/21 13:00 10/04/21 13:00 10/04/21 13:00 Results - Labs CBC & Chem 7: 10/04/21 10:15 10/04/21 10:15 Labs: Laboratory Last Values WBC 6.2 K/mm3 (4.5-11.0) 10/04/21 10:15 RBC 2.65 M/mm3 (3.65-5.03) L 10/04/21 10:15 Hgb 7.8 gm/dl (10.1-14.3) L 10/04/21 10:15 Hct 23.2 % (30.3-42.9) L 10/04/21 10:15 MCV 88 fl (79-97) 10/04/21 10:15 MCH 30 pg (28-32) 10/04/21 10:15 MCHC 34 % (30-34) 10/04/21 10:15 RDW 15.4 % (13.2-15.2) H 10/04/21 10:15 Plt Count 152 K/mm3 (140-440) 10/04/21 10:15 Lymph % (Auto) 33.9 % (13.4-35.0) 10/03/21 09:07 Hale % (Auto) 6.7 % (0.0-7.3) 10/03/21 09:07 Eos % (Auto) 0.2 % (0.0-4.3) 10/03/21 09:07 Baso % (Auto) 0.3 % (0.0-1.8) 10/03/21 09:07 Lymph # (Auto) 2.9 K/mm3 (1.2-5.4) 10/03/21 09:07 Hale # (Auto) 0.6 K/mm3 (0.0-0.8) 10/03/21 09:07 Eos # (Auto) 0.0 K/mm3 (0.0-0.4) 10/03/21 09:07 Baso # (Auto) 0.0 K/mm3 (0.0-0.1) 10/03/21 09:07 Add Manual Diff Complete 10/01/21 23:29 Total Counted 100 10/01/21 23:29 Seg Neutrophils % 58.9 % (40.0-70.0) 10/03/21 09:07 Seg Neuts % (Manual) 57.0 % (40.0-70.0) 10/01/21 23:29 Band Neutrophils % 0 % 10/01/21 23:29 Lymphocytes % (Manual) 42.0 % (13.4-35.0) H 10/01/21 23:29 Reactive Lymphs % (Man) 0 % 10/01/21 23:29 Monocytes % (Manual) 0 % (0.0-7.3) 10/01/21 23:29 Eosinophils % (Manual) 0 % (0.0-4.3) 10/01/21 23:29 Basophils % (Manual) 1.0 % (0.0-1.8) 10/01/21 23:29 Metamyelocytes % 0 % 10/01/21 23:29 Myelocytes % 0 % 10/01/21 23:29 Promyelocytes % 0 % 10/01/21 23:29 Blast Cells % 0 % 10/01/21 23:29 Nucleated RBC % Not Reportable 10/01/21 23:29 Seg Neutrophils # 5.0 K/mm3 (1.8-7.7) 10/03/21 09:07 Seg Neutrophils # Man 7.5 K/mm3 (1.8-7.7) 10/01/21 23:29 Band Neutrophils # 0.0 K/mm3 10/01/21 23:29 Lymphocytes # (Manual) 5.5 K/mm3 (1.2-5.4) H 10/01/21 23:29 Abs React Lymphs (Man) 0.0 K/mm3 10/01/21 23:29 Monocytes # (Manual) 0.0 K/mm3 (0.0-0.8) 10/01/21 23:29 Eosinophils # (Manual) 0.0 K/mm3 (0.0-0.4) 10/01/21 23:29 Basophils # (Manual) 0.1 K/mm3 (0.0-0.1) 10/01/21 23:29 Metamyelocytes # 0.0 K/mm3 10/01/21 23:29 Myelocytes # 0.0 K/mm3 10/01/21 23:29 Promyelocytes # 0.0 K/mm3 10/01/21 23:29 Blast Cells # 0.0 K/mm3 10/01/21 23:29 WBC Morphology Not Reportable 10/01/21 23:29 Hypersegmented Neuts Not Reportable 10/01/21 23:29 Hyposegmented Neuts Not Reportable 10/01/21 23:29 Hypogranular Neuts Not Reportable 10/01/21 23:29 Smudge Cells Not Reportable 10/01/21 23:29 Toxic Granulation Not Reportable 10/01/21 23:29 Toxic Vacuolation Not Reportable 10/01/21 23:29 Dohle Bodies Not Reportable 10/01/21 23:29 Pelger-Huet Anomaly Not Reportable 10/01/21 23:29 Gómez Rods Not Reportable 10/01/21 23:29 Platelet Estimate Consistent w auto 10/01/21 23:29 Clumped Platelets Not Reportable 10/01/21 23:29 Plt Clumps, EDTA Not Reportable 10/01/21 23:29 Large Platelets Not Reportable 10/01/21 23:29 Giant Platelets Not Reportable 10/01/21 23:29 Platelet Satelliting Not Reportable 10/01/21 23:29 Plt Morphology Comment Not Reportable 10/01/21 23:29 RBC Morphology Not Reportable 10/01/21 23:29 Dimorphic RBCs Not Reportable 10/01/21 23:29 Polychromasia Not Reportable 10/01/21 23:29 Hypochromasia 3+ 05/05/22 23:29 Poikilocytosis Not Reportable 10/01/21 23:29 Anisocytosis Not Reportable 10/01/21 23:29 Microcytosis Not Reportable 10/01/21 23:29 Macrocytosis Not Reportable 10/01/21 23:29 Spherocytes Not Reportable 10/01/21 23:29 Pappenheimer Bodies Not Reportable 10/01/21 23:29 Sickle Cells Not Reportable 10/01/21 23:29 Target Cells Not Reportable 10/01/21 23:29 Tear Drop Cells Not Reportable 10/01/21 23:29 Ovalocytes Not Reportable 10/01/21 23:29 Helmet Cells Not Reportable 10/01/21 23:29 Watkins-Valders Bodies Not Reportable 10/01/21 23:29 [place] Rings Not Reportable 10/01/21 23:29 Octavio Cells Not Reportable 10/01/21 23:29 Bite Cells Not Reportable 10/01/21 23:29 Crenated Cell Not Reportable 10/01/21 23:29 Elliptocytes Not Reportable 10/01/21 23:29 Acanthocytes (Spur) Not Reportable 10/01/21 23:29 Rouleaux Not Reportable 10/01/21 23:29 Hemoglobin C Crystals Not Reportable 10/01/21 23:29 Schistocytes Not Reportable 10/01/21 23:29 Malaria parasites Not Reportable 10/01/21 23:29 Brendan Bodies Not Reportable 10/01/21 23:29 Hem Pathologist Commnt No 10/01/21 23:29 PT 13.5 Sec. (12.2-14.9) 10/01/21 12:15 INR 0.93 (0.87-1.13) 10/01/21 12:15 APTT 27.6 Sec. (24.2-36.6) 10/01/21 12:15 Sodium 137 mmol/L (137-145) 10/04/21 10:15 Potassium 3.1 mmol/L (3.6-5.0) L D 10/04/21 10:15 Chloride 101.3 mmol/L (98-107) 10/04/21 10:15 Carbon Dioxide 26 mmol/L (22-30) 10/04/21 10:15 Anion Gap 13 mmol/L 10/04/21 10:15 BUN 3 mg/dL (7-17) L 10/04/21 10:15 Creatinine 0.3 mg/dL (0.6-1.2) L 10/04/21 10:15 Estimated GFR > 60 ml/min 10/04/21 10:15 BUN/Creatinine Ratio 10 % 10/04/21 10:15 Glucose 83 mg/dL (65-100) 10/04/21 10:15 POC Glucose 76 mg/dL (70-105) 10/04/21 05:55 Lactic Acid 1.60 mmol/L (0.7-2.0) 10/01/21 12:15 Calcium 7.6 mg/dL (8.4-10.2) L 10/04/21 10:15 Magnesium 1.70 mg/dL (1.7-2.3) 10/04/21 12:00 Total Bilirubin 0.30 mg/dL (0.1-1.2) 10/02/21 12:35 AST 17 units/L (5-40) 10/02/21 12:35 ALT 15 units/L (7-56) 10/02/21 12:35 Alkaline Phosphatase 34 units/L (35-129) L 10/02/21 12:35 Total Protein 5.0 g/dL (6.3-8.2) L 10/02/21 12:35 Albumin 3.3 g/dL (3.9-5) L 10/02/21 12:35 Albumin/Globulin Ratio 1.9 % 10/02/21 12:35 Urine HCG, Qual Negative (Negative) 10/03/21 16:15 Blood Type O POSITIVE 10/02/21 00:55 Antibody Screen Negative 10/02/21 00:55 Crossmatch See Detail 10/02/21 00:55 [place]/IV: Voiding Method External Female Catheter Active Medications - Current Medications Current Medications: Generic Name Dose Route Start Last Admin Trade Name Freq PRN Reason Stop Dose Admin Acetaminophen 650 mg 10/01/21 19:03 10/04/21 12:53 Acetaminophen 325 Mg Tab PO 650 mg Q4H PRN Administration Pain MILD(1-3)/Fever >100.5/FORTE Dextrose 50 ml 10/04/21 07:59 Dextrose 50% In Water (25gm) 50 Ml Syringe IV PRN PRN HYPOGLYCEMIA Dextrose 1,000 mls @ 75 mls/hr 10/04/21 07:00 10/04/21 06:15 D5w IV 75 mls/hr DIRECT MATT Administration Metoclopramide HCl 10 mg 10/01/21 19:03 Metoclopramide 10 Mg/2 Ml Inj IV Q6H PRN Nausea And Vomiting Morphine Sulfate 2 mg 10/01/21 19:03 10/03/21 21:55 Morphine 2 Mg/1 Ml Inj IV 2 mg Q4H PRN Administration Pain, Moderate (4-6) Ondansetron HCl 4 mg 10/01/21 19:03 10/02/21 01:24 Ondansetron 4 Mg/2 Ml Inj IV 4 mg Q8H PRN Administration Nausea And Vomiting Pantoprazole Sodium 40 mg 10/02/21 10:00 10/04/21 09:51 Pantoprazole 40 Mg Inj IV 40 mg BID MATT Administration Sodium Chloride 10 ml 10/01/21 22:00 10/04/21 09:52 Sodium Chloride 0.9% 10 Ml Flush Syringe IV 10 ml BID MATT Administration Sodium Chloride 10 ml 10/01/21 19:03 Sodium Chloride 0.9% 10 Ml Flush Syringe IV PRN PRN LINE FLUSH
--- NOTE | 2021-10-04 10:22 | Operative Report ---
Operative Report Operative Report: DOS: 10/04/21 SURGEON: Layo Silver MD EGD REPORT PREOPERATIVE DIAGNOSIS and POSTOPERATIVE DIAGNOSIS: GI bleed ESTIMATED BLOOD LOSS: None DESCRIPTION OF PROCEDURE: A high-resolution EGD scope was passed through the oropharynx, esophagus, stomach, and second portion of duodenum. The scope was carefully withdrawn. Retroflexion was performed in the stomach. At the end of the procedure, the scope was cleaned using normal technique. Vital signs monitored continuously throughout. SEDATION: Provided by Anesthesiology Services. COMPLICATIONS: None. FINDINGS: * Normal duodenum * Normal stomach * GE junction 36 cm from incisors * 2 cm hiatal hernia * Horizontal furrowing of the mid and distal esophagus can be compatible with reflux or eosinophilic esophagitis. Given patient with acute GI bleedand no dysphagia symptoms, biopsies were not obtained RECOMMENDATIONS: * Consider starting patient on pantoprazole 20 mg daily * Putative source for patient's GI bleed is colonic diverticular bleed. If she has recurrent overt large amount of GI bleeding especially with hemodynamic instability please call interventional radiology immediately. If patient has continued recurrent life-threatening GI bleeding can consider a subtotal colectomy though this would be a last resort intervention * Colonoscopy has not been able to isolate the diverticulum which is the source for GI bleed, unlikely that repeat endoscopic evaluation would be of benefit therefore GI will sign off
--- NOTE | 2021-10-04 10:24 | Operative Report ---
Operative Report Operative Report: DOS: 10/04/21 SURGEON: Layo Silver MD COLONOSCOPY REPORT PREOPERATIVE AND POSTOPERATIVE DIAGNOSIS: GI bleed DESCRIPTION OF PROCEDURE: The colonoscope was passed to the terminal ileum as identified by the ileal tissue. Scope was carefully withdrawn. Retroflexion was performed in the rectum. At the end of procedure, the scope was cleaned using normal technique. Vital signs monitored continuously throughout. SEDATION: Provided by Anesthesiology Services. Quality of the prep was adequate. COMPLICATIONS: None. ESTIMATED BLOOD LOSS: None FINDINGS: * Small amount of red tinged fluid in the terminal ileum unclear if blood from proximal source versus small amount of blood from colon migrating proximally to the terminal ileum * Scattered diverticulosis throughout the entire colon * Moderate amount of red blood scattered throughout the whole colon this was suctioned thoroughly with no active bleeding * Small nonbleeding internal hemorrhoids RECOMMENDATIONS: * Putative source for patient's GI bleed is colonic diverticular bleed. If she has recurrent overt large amount of GI bleeding especially with hemodynamic instability please call interventional radiology immediately. If patient has continued recurrent life-threatening GI bleeding can consider a subtotal colectomy though this would be a last resort intervention * Colonoscopy has not been able to isolate the diverticulum which is the source for GI bleed, unlikely that repeat endoscopic evaluation would be of benefit therefore GI will sign off
[2021-10-04] MEDS ORDERED: SODIUM CHLORIDE 0.9% 1000 ML 1,000 ML ONE (10:30)
[2021-10-04 10:37] LABS: Hematocrit 23.2 % (30.3-42.9); Hemoglobin 7.8 gm/dl (10.1-14.3); Mean Corpuscular HGB Conc 34 % (30-34); Mean Corpuscular Volume 88 fl (79-97); Platelet Count 152 K/mm3 (140-440); Red Blood Count 2.65 M/mm3 (3.65-5.03); Red Cell Distribution Width 15.4 % (13.2-15.2)
[2021-10-04 10:56] LABS: Blood Urea Nitrogen 3 mg/dL (7-17); Calcium 7.6 mg/dL (8.4-10.2); Hemolysis Index 15
--- NOTE | 2021-10-04 11:08 | Progress Note ---
Assessment and Plan Impression: Lower GI bleeding, improving. Hemorrhagic shock, resolved Severe anemia secondary to blood loss Recommendation: Continue with blood transfusion as needed Continue with IV fluids. May transfer out of ICU to IM. Total critical care time 31-minute Subjective Date of service: 10/04/21 Principal diagnosis: gi bleed Interval history: Patient feeling much better. Still have some dark clotted blood in the stools. Underwent colonoscopy did not identify a active bleed or source of bleeding. H&H is being monitored and have shown only minimal drop since yesterday Objective Vital Signs - 12hr 10/03/21 10/03/21 10/03/21 23:11 23:21 23:31 Temperature Pulse Rate 91 H 90 96 H Pulse Rate [ From Monitor] Respiratory 15 15 20 Rate Blood Pressure 131/66 143/88 131/74 O2 Sat by Pulse 99 100 100 Oximetry 10/03/21 10/03/21 10/04/21 23:41 23:51 00:00 Temperature Pulse Rate 93 H 90 82 Pulse Rate [ 88 From Monitor] Respiratory 21 13 18 Rate Blood Pressure 131/74 154/86 159/78 O2 Sat by Pulse 100 100 98 Oximetry 10/04/21 10/04/21 10/04/21 00:11 00:21 00:30 Temperature Pulse Rate 87 89 84 Pulse Rate [ From Monitor] Respiratory 22 20 22 Rate Blood Pressure 159/78 140/79 148/73 O2 Sat by Pulse 100 99 99 Oximetry 10/04/21 10/04/21 10/04/21 00:41 00:51 01:00 Temperature Pulse Rate 93 H 82 84 Pulse Rate [ From Monitor] Respiratory 18 21 13 Rate Blood Pressure 148/73 132/68 120/68 O2 Sat by Pulse 100 100 99 Oximetry 10/04/21 10/04/21 10/04/21 01:11 01:21 01:30 Temperature Pulse Rate 78 86 92 H Pulse Rate [ From Monitor] Respiratory 21 14 9 L Rate Blood Pressure 120/68 127/69 132/70 O2 Sat by Pulse 100 100 100 Oximetry 10/04/21 10/04/21 10/04/21 01:41 01:51 02:00 Temperature Pulse Rate 93 H 89 96 H Pulse Rate [ From Monitor] Respiratory 15 14 23 Rate Blood Pressure 132/70 116/67 136/73 O2 Sat by Pulse 98 100 100 Oximetry 10/04/21 10/04/2110/04/22 02:11 02:21 02:30 Temperature Pulse Rate Pulse Rate [ From Monitor] Respiratory Rate Blood Pressure 136/73 143/81 130/73 O2 Sat by Pulse 99 99 99 Oximetry 10/04/21 10/04/21 10/04/21 02:41 02:51 03:00 Temperature Pulse Rate 91 H 92 H Pulse Rate [ From Monitor] Respiratory 17 14 Rate Blood Pressure 130/73 128/81 150/90 O2 Sat by Pulse 100 100 100 Oximetry 10/04/21 10/04/21 10/04/21 03:11 03:21 03:31 Temperature Pulse Rate 90 81 92 H Pulse Rate [ From Monitor] Respiratory 13 17 24 Rate Blood Pressure 150/90 117/75 128/83 O2 Sat by Pulse 100 99 99 Oximetry 10/04/21 10/04/21 10/04/21 03:41 03:51 04:00 Temperature Pulse Rate 86 83 90 Pulse Rate [ 88 From Monitor] Respiratory 21 16 25 H Rate Blood Pressure 128/83 151/88 128/89 O2 Sat by Pulse 100 99 100 Oximetry 10/04/21 10/04/21 10/04/21 04:08 04:11 04:21 Temperature 98.4 F Pulse Rate 87 84 Pulse Rate [ From Monitor] Respiratory 17 15 Rate Blood Pressure 128/89 127/83 O2 Sat by Pulse 98 98 Oximetry 10/04/21 10/04/21 10/04/21 04:30 04:41 04:51 Temperature Pulse Rate 81 81 87 Pulse Rate [ From Monitor] Respiratory 16 15 10 L Rate Blood Pressure 130/75 130/75 128/73 O2 Sat by Pulse 99 100 100 Oximetry 10/04/21 10/04/21 10/04/21 05:00 05:11 05:21 Temperature Pulse Rate 99 H 97 H 91 H Pulse Rate [ From Monitor] Respiratory 28 H 31 H 12 Rate Blood Pressure 140/87 140/87 147/76 O2 Sat by Pulse 100 99 100 Oximetry 10/04/21 10/04/21 10/04/21 05:30 05:41 05:51 Temperature Pulse Rate 93 H 92 H 88 Pulse Rate [ From Monitor] Respiratory 14 19 13 Rate Blood Pressure 133/72 133/72 157/83 O2 Sat by Pulse 100 100 100 Oximetry 10/04/21 10/04/21 10/04/21 06:00 06:11 06:21 Temperature Pulse Rate 84 83 77 Pulse Rate [ From Monitor] Respiratory 16 15 16 Rate Blood Pressure 151/76 151/76 138/85 O2 Sat by Pulse 100 100 100 Oximetry 10/04/21 10/04/21 10/04/21 06:30 06:41 06:51 Temperature Pulse Rate 78 78 80 Pulse Rate [ From Monitor] Respiratory 17 15 12 Rate Blood Pressure 127/69 127/69 154/78 O2 Sat by Pulse 100 100 100 Oximetry 10/04/21 10/04/21 10/04/21 07:00 07:05 07:11 Temperature 98.9 F Pulse Rate 94 H 80 Pulse Rate [ From Monitor] Respiratory 17 16 Rate Blood Pressure 129/86 129/86 O2 Sat by Pulse 99 100 Oximetry 10/04/21 10/04/21 10/04/21 07:21 07:30 07:41 Temperature Pulse Rate 97 H 90 90 Pulse Rate [ From Monitor] Respiratory 14 15 18 Rate Blood Pressure 144/70 152/77 152/77 O2 Sat by Pulse 100 100 100 Oximetry 10/04/21 10/04/21 10/04/21 07:51 08:00 08:11 Temperature Pulse Rate 90 85 89 Pulse Rate [ 85 From Monitor] Respiratory 17 23 16 Rate Blood Pressure 149/99 140/84 140/84 O2 Sat by Pulse 100 100 100 Oximetry 10/04/21 10/04/21 10/04/21 08:21 08:30 08:41 Temperature Pulse Rate 87 89 88 Pulse Rate [ From Monitor] Respiratory 18 17 21 Rate Blood Pressure 149/84 156/85 156/85 O2 Sat by Pulse 91 100 99 Oximetry 10/04/21 10/04/21 10/04/21 08:51 09:00 09:10 Temperature Pulse Rate 86 84 92 H Pulse Rate [ From Monitor] Respiratory 21 11 L 19 Rate Blood Pressure 161/90 158/75 128/82 O2 Sat by Pulse 100 100 100 Oximetry 10/04/21 10/04/21 10/04/21 09:21 10:06 10:10 Temperature Pulse Rate 101 H 88 88 Pulse Rate [ From Monitor] Respiratory 16 16 28 H Rate Blood Pressure 93/51 O2 Sat by Pulse 100 99 99 Oximetry 10/04/21 10/04/21 10:20 10:30 Temperature Pulse Rate 85 87 Pulse Rate [ From Monitor] Respiratory 19 14 Rate Blood Pressure O2 Sat by Pulse 99 100 Oximetry Constitutional: no acute distress, alert (Having chills and feeling cold but no fever), appears uncomfortable, other Eyes: non-icteric ENT: oropharynx moist Neck: supple, no lymphadenopathy, no JVD Effort: normal Ascultation: Bilateral: clear Cardiovascular: other (Tachycardia) Gastrointestinal: normoactive bowel sounds, soft, non-tender, other (Obese) Extremities: no cyanosis, no edema Neurologic: normal mental status Psychiatric: mood appropriate CBC and BMP: 10/04/21 10:15 10/04/21 10:15 ABG, PT/INR, D-dimer: PT/INR, D-dimer PT 13.5 Sec. (12.2-14.9) 10/01/21 12:15 INR 0.93 (0.87-1.13) 10/01/21 12:15 Abnormal lab findings: Abnormal Labs 10/01/21 10/01/21 10/01/21 12:15 12:15 23:20 WBC RBC 2.58 L Hgb 7.8 L Hct 24.6 L RDW Lymphocytes % (Manual) Lymphocytes # (Manual) Chloride BUN Creatinine 0.5 L Glucose 126 H POC Glucose 159 H Calcium Alkaline Phosphatase Total Protein 5.8 L Albumin 3.6 L Crossmatch 10/01/21 10/02/21 10/02/21 23:29 00:55 12:35 WBC 13.1 H RBC 1.77 L Hgb 5.4 L* Hct 16.8 L* D RDW Lymphocytes % (Manual) 42.0 H Lymphocytes # (Manual) 5.5 H Chloride 107.2 H BUN Creatinine 0.4 L Glucose 104 H POC Glucose Calcium 7.9 L Alkaline Phosphatase 34 L Total Protein 5.0 L Albumin 3.3 L Crossmatch See Detail 10/02/21 10/02/21 10/02/21 12:35 15:42 21:02 WBC RBC 3.09 L Hgb 9.3 L D 8.8 L 6.6 L Hct 28.1 L D 26.1 L 20.4 L RDW Lymphocytes % (Manual) Lymphocytes # (Manual) Chloride BUN Creatinine Glucose POC Glucose Calcium Alkaline Phosphatase Total Protein Albumin Crossmatch 10/03/21 10/03/21 10/03/21 06:55 06:55 09:07 WBC RBC 2.61 L 2.09 L Hgb 7.7 L 6.2 L Hct 22.7 L 18.8 L* RDW 16.1 H 16.4 H Lymphocytes % (Manual) Lymphocytes # (Manual) Chloride BUN Creatinine 0.4 L Glucose 104 H POC Glucose Calcium 7.7 L Alkaline Phosphatase Total Protein Albumin Crossmatch 10/03/21 10/04/21 10/04/21 22:17 10:15 10:15 WBC RBC 2.65 L Hgb 8.4 L 7.8 L Hct 24.8 L D 23.2 L RDW 15.4 H Lymphocytes % (Manual) Lymphocytes # (Manual) Chloride BUN 3 L Creatinine Glucose POC Glucose Calcium 7.6 L Alkaline Phosphatase Total Protein Albumin Crossmatch
[2021-10-04 11:11] LABS: BUN/Creatinine Ratio 10
[2021-10-04] MEDS ORDERED: POTASSIUM CHLORIDE 20 MEQ PACKET FEEDTUBE ONE (12:01)
[2021-10-04] MEDS: ACETAMINOPHEN 325 MG TAB PO PRN (12:53)
[2021-10-04] MEDS ORDERED: POTASSIUM CHLORIDE ER 20 MEQ TAB PO ONE (13:00)
[2021-10-04] MEDS: MORPHINE 2 MG/1 ML INJ IV PRN (19:52)
[2021-10-05 04:35] LABS: Hematocrit 22.9 % (30.3-42.9); Hemoglobin 8.3 gm/dl (10.1-14.3); Mean Corpuscular HGB Conc 36 % (30-34); Mean Corpuscular Volume 86 fl (79-97); Platelet Count 186 K/mm3 (140-440); Red Blood Count 2.65 M/mm3 (3.65-5.03); Red Cell Distribution Width 15.5 % (13.2-15.2)
[2021-10-05] MEDS: MORPHINE 2 MG/1 ML INJ IV PRN ×2 (04:43→09:55)
[2021-10-05 04:48] LABS: Blood Urea Nitrogen 2 mg/dL (7-17); Calcium 8.1 mg/dL (8.4-10.2); Hemolysis Index 7
[2021-10-05 05:05] LABS: BUN/Creatinine Ratio 5
[2021-10-05] MEDS: PANTOPRAZOLE 40 MG INJ IV SCH (09:48)
[2021-10-05] MEDS: DEXTROSE 5% IN WATER 1,000 ML IV SCH ×2 (10:54→22:35)
--- NOTE | 2021-10-05 12:37 | Progress Note ---
Assessment and Plan Impression: Lower GI bleeding, improving. Hemorrhagic shock, resolved Severe anemia secondary to blood loss Recommendation: Continue with blood transfusion as needed Continue with IV fluids. May transfer to floor Will sign off thank you Subjective Date of service: 10/05/21 Principal diagnosis: gi bleed Interval history: Patient feeling much better. Still have some dark clotted blood in the stools. Underwent colonoscopy did not identify a active bleed or source of bleeding. No further bleeding H&H stable Objective Vital Signs - 12hr 10/05/21 10/05/21 10/05/21 01:00 02:00 03:00 Temperature Pulse Rate 80 102 H 88 Pulse Rate [ From Monitor] Respiratory 10 L 18 22 Rate Blood Pressure 119/71 130/81 132/72 O2 Sat by Pulse 98 98 98 Oximetry 10/05/21 10/05/21 10/05/21 04:00 04:43 05:00 Temperature 98.9 F Pulse Rate 76 83 Pulse Rate [ 81 From Monitor] Respiratory 20 18 14 Rate Blood Pressure 126/74 120/81 O2 Sat by Pulse 98 100 Oximetry 10/05/21 10/05/21 10/05/21 05:13 06:00 07:00 Temperature Pulse Rate 83 79 Pulse Rate [ From Monitor] Respiratory 19 16 15 Rate Blood Pressure 115/76 129/73 O2 Sat by Pulse 98 99 Oximetry 10/05/21 10/05/21 10/05/21 07:52 08:00 09:00 Temperature 99.9 F H Pulse Rate 76 85 Pulse Rate [ 78 From Monitor] Respiratory 20 20 Rate Blood Pressure 126/82 127/84 O2 Sat by Pulse 98 99 Oximetry 10/05/21 10/05/21 10/05/21 10:00 11:00 12:00 Temperature 99.4 F Pulse Rate 91 H 83 95 H Pulse Rate [ 78 From Monitor] Respiratory 23 15 20 Rate Blood Pressure 135/84 126/80 126/80 O2 Sat by Pulse 97 98 96 Oximetry Constitutional: no acute distress, alert (Having chills and feeling cold but no fever), appears uncomfortable, other Eyes: non-icteric ENT: oropharynx moist Neck: supple, no lymphadenopathy, no JVD Effort: normal Ascultation: Bilateral: clear Cardiovascular: other (Tachycardia) Gastrointestinal: normoactive bowel sounds, soft, non-tender, other (Obese) Extremities: no cyanosis, no edema Neurologic: normal mental status Psychiatric: mood appropriate CBC and BMP: 10/05/21 04:13 10/05/21 04:13 ABG, PT/INR, D-dimer: PT/INR, D-dimer PT 13.5 Sec. (12.2-14.9) 10/01/21 12:15 INR 0.93 (0.87-1.13) 10/01/21 12:15 Abnormal lab findings: Abnormal Labs 10/01/21 10/01/21 10/01/21 12:15 12:15 23:20 WBC RBC 2.58 L Hgb 7.8 L Hct 24.6 L MCHC RDW Lymphocytes % (Manual) Lymphocytes # (Manual) Potassium Chloride BUN Creatinine 0.5 L Glucose 126 H POC Glucose 159 H Calcium Alkaline Phosphatase Total Protein 5.8 L Albumin 3.6 L Crossmatch 10/01/21 10/02/21 10/02/21 23:29 00:55 12:35 WBC 13.1 H RBC 1.77 L Hgb 5.4 L* Hct 16.8 L* D MCHC RDW Lymphocytes % (Manual) 42.0 H Lymphocytes # (Manual) 5.5 H Potassium Chloride 107.2 H BUN Creatinine 0.4 L Glucose 104 H POC Glucose Calcium 7.9 L Alkaline Phosphatase 34 L Total Protein 5.0 L Albumin 3.3 L Crossmatch See Detail 10/02/21 10/02/21 10/02/21 12:35 15:42 21:02 WBC RBC 3.09 L Hgb 9.3 L D 8.8 L 6.6 L Hct 28.1 L D 26.1 L 20.4 L MCHC RDW Lymphocytes % (Manual) Lymphocytes # (Manual) Potassium Chloride BUN Creatinine Glucose POC Glucose Calcium Alkaline Phosphatase Total Protein Albumin Crossmatch 10/03/21 10/03/21 10/03/21 06:55 06:55 09:07 WBC RBC 2.61 L 2.09 L Hgb 7.7 L 6.2 L Hct 22.7 L 18.8 L* MCHC RDW 16.1 H 16.4 H Lymphocytes % (Manual) Lymphocytes # (Manual) Potassium Chloride BUN Creatinine 0.4 L Glucose 104 H POC Glucose Calcium 7.7 L Alkaline Phosphatase Total Protein Albumin Crossmatch 10/03/21 10/04/21 10/04/21 22:17 10:15 10:15 WBC RBC 2.65 L Hgb 8.4 L 7.8 L Hct 24.8 L D 23.2 L MCHC RDW 15.4 H Lymphocytes % (Manual) Lymphocytes # (Manual) Potassium 3.1 L D Chloride BUN 3 L Creatinine 0.3 L Glucose POC Glucose Calcium 7.6 L Alkaline Phosphatase Total Protein Albumin Crossmatch 10/05/21 10/05/21 04:13 04:13 WBC RBC 2.65 L Hgb 8.3 L Hct 22.9 L MCHC 36 H RDW 15.5 H Lymphocytes % (Manual) Lymphocytes # (Manual) Potassium 3.5 L Chloride BUN 2 L Creatinine 0.4 L Glucose 106 H POC Glucose Calcium 8.1 L Alkaline Phosphatase Total Protein Albumin Crossmatch
--- NOTE | 2021-10-05 13:49 | Progress Note ---
Assessment and Plan Assessment and plan: This is a 40 year old female with HTN, diverticulitis with prior diverticulitis bleed, internal hemorrhoids and chronic anemia who presents to the hospital on 10/01 with complaints of hematochezia which started 3 days prior with dizziness and lightheadedness. Work-up in the emergency department revealed H/H of 7.8/24, CT abdomen and pelvis showed cholelithiasis with no source of GI bleeding. Patient was admitted to the hospital service with consult to GI to IMCU for close monitoring. Hospital course to date: Colonoscopy finding FINDINGS: * Small amount of red tinged fluid in the terminal ileum unclear if blood from proximal source versus small amount of blood from colon migrating proximally to the terminal ileum * Scattered diverticulosis throughout the entire colon * Moderate amount of red blood scattered throughout the whole colon this was suctioned thoroughly with no active bleeding * Small nonbleeding internal hemorrhoids RECOMMENDATIONS: * Putative source for patient's GI bleed is colonic diverticular bleed. If she has recurrent overt large amount of GI bleeding especially with hemodynamic instability please call interventional radiology immediately. If patient has continued recurrent life-threatening GI bleeding can consider a subtotal colectomy though this would be a last resort intervention * Colonoscopy has not been able to isolate the diverticulum which is the source for GI bleed, unlikely that repeat endoscopic evaluation would be of benefit therefore GI will sign off 10/04: Patient had EGD this morning which showed extensive diverticulitis throughout colon without any specific source of bleeding identified. Patient has been cleared for diet and we will resume clear liquid diet. GI recommended if patient has recurrent large GI bleeding with hemodynamic instability IR should be notified immediately. 10/05: Patient remains clinically stable with no rebleed noted at this time. Findings on the colonoscopy and recommendation has been discussed with her she verbalizes understanding. We will be transferring her to the medical floor t holly and monitor H&H if no further rebleeding noted tomorrow patient can be discharged to follow-up with GI and surgery outpatient. Dietary changes discussed with the patient with preventive care planning and counseling discussed for 15 minutes. Neuro: s/p autonomic dysfunction status post rapid response -Avoid delirium -Reorientation as needed -Maintain sleep-wake cycle -As needed analgesia Cardiac: h/o HTN -Blood pressure monitoring per protocol -Per documentation, patient stated she does not take any antihypertensive medications and controls her BP with apple cider vinegar Respiratory: Current nicotine abuse -Supplemental oxygen as needed -SPO2 monitor -Pulmonary hygiene -Nicotine cessation counseling provided GI: GI bleed, h/o diverticulitis with prior diverticulitis bleed, MO -GI, CCM and IR consulted, appreciate recommendations -24 hours -10/04 EGD/colonoscopy revealed 2 cm hiatal hernia, findings consistent with reflux or eosinophilic esophagitis, scattered diverticulosis throughout the entire colon with no active bleeding, small nonbleeding internal hemorrhoids -GI recommends pantoprazole 20 mg daily and IR consult if recurrent large upper GI bleed with hemodynamic instability -Clear liquid diet -IR consult if recurrent large upper GI bleed with hemodynamic instability -CTA abdomen/pelvis showed no acute abnormality, no evidence of localized bowel inflammation or obstruction, no evidence of active GI bleed, cholelithiasis -IR recommends nuclear brain bleeding study if recurrent bleeding -CT abdomen/pelvis with contrast showed cholelithiasis, no source of GI bleeding detected on standard CT with contrast -CLD, advance as tolerated -BR: not inidated at this time : Hypokalemia -Renally dose medications -Avoid nephrotoxic medications -Potassium repleted with p.o. KCl -Add on lab of magnesium pending -Trend BMP -Currently on D5 half-normal saline IVF ID: NAD -f/u blood culture -Monitor WBC and temperature curve Endo: NAD -Avoid hypoglycemia Heme: ABLA, s/p hemorrhagic shock, h/o anemia -Admit H/H 7.8, 24.6 which decreased to 5.4/16.8 on 10/01 -Patient had a presyncopal episode after profuse rectal bleeding on 10/03 in the IMCU and was transferred to ICU -Trend CBC -Transfuse hemoglobin less than 7 -S/p 6 units PRBC and 2 units FFP -Monitor for signs of bleeding -SCDs to BLE while in bed -Avoid chemical anticoagulation in setting of recent GI bleed History Interval history: Patient seen and examined this morning. No new complaints no new melena rectal bleed noted. No reported Hospitalist Physical - Physical exam Narrative exam: VITAL SIGNS: Reviewed. GENERAL: The patient appears normally developed vital signs as documented. HEAD: No signs of head trauma. EYES: Pupils are equal. Extraocular motions intact. EARS: Hearing grossly intact. MOUTH: Oropharynx is normal. NECK: No adenopathy, no JVD. CHEST: Chest with diminished breath sounds bilaterally. No wheezes, rales, or rhonchi. CARDIAC: Tachycardic with regular rhythm. S1 and S2, without murmurs, gallops, or rubs. VASCULAR: No Edema. Peripheral pulses normal and equal in all extremities. ABDOMEN: Soft, non tender and non distended. No rebound or guarding, and no masses palpated. Bowel Sounds normal. MUSCULOSKELETAL: Good range of motion of all major joints. Extremities without clubbing, cyanosis or edema. NEUROLOGIC EXAM: Alert and oriented x 3 No focal sensory or strength deficits. Speech normal. Follows commands. PSYCHIATRIC: Mood stable SKIN: detail exam as documented in skin assessment - Constitutional Vitals: Temp Pulse Resp BP Pulse Ox 99.4 F 81 20 127/81 99 10/05/21 11:00 10/05/21 13:00 10/05/21 13:00 10/05/21 13:00 10/05/21 13:00 General appearance: Present: no acute distress, well-nourished, obese Results - Labs CBC & Chem 7: 10/05/21 04:13 10/05/21 04:13 Labs: Laboratory Last Values WBC 6.4 K/mm3 (4.5-11.0) 10/05/21 04:13 RBC 2.65 M/mm3 (3.65-5.03) L 10/05/21 04:13 Hgb 8.3 gm/dl (10.1-14.3) L 10/05/21 04:13 Hct 22.9 % (30.3-42.9) L 10/05/21 04:13 MCV 86 fl (79-97) 10/05/21 04:13 MCH 31 pg (28-32) 10/05/21 04:13 MCHC 36 % (30-34) H 10/05/21 04:13 RDW 15.5 % (13.2-15.2) H 10/05/21 04:13 Plt Count 186 K/mm3 (140-440) 10/05/21 04:13 Lymph % (Auto) 33.9 % (13.4-35.0) 10/03/21 09:07 [place] % (Auto) 6.7 % (0.0-7.3) 10/03/21 09:07 Eos % (Auto) 0.2 % (0.0-4.3) 10/03/21 09:07 Baso % (Auto) 0.3 % (0.0-1.8) 10/03/21 09:07 Lymph # (Auto) 2.9 K/mm3 (1.2-5.4) 10/03/21 09:07 [place] # (Auto) 0.6 K/mm3 (0.0-0.8) 10/03/21 09:07 Eos # (Auto) 0.0 K/mm3 (0.0-0.4) 10/03/21 09:07 Baso # (Auto) 0.0 K/mm3 (0.0-0.1) 10/03/21 09:07 Add Manual Diff Complete 10/01/21 23:29 Total Counted 100 10/01/21 23:29 Seg Neutrophils % 58.9 % (40.0-70.0) 10/03/21 09:07 Seg Neuts % (Manual) 57.0 % (40.0-70.0) 10/01/21 23:29 Band Neutrophils % 0 % 10/01/21 23:29 Lymphocytes % (Manual) 42.0 % (13.4-35.0) H 10/01/21 23:29 Reactive Lymphs % (Man) 0 % 10/01/21 23:29 Monocytes % (Manual) 0 % (0.0-7.3) 10/01/21 23:29 Eosinophils % (Manual) 0 % (0.0-4.3) 10/01/21 23:29 Basophils % (Manual) 1.0 % (0.0-1.8) 10/01/21 23:29 Metamyelocytes % 0 % 10/01/21 23:29 Myelocytes % 0 % 10/01/21 23:29 Promyelocytes % 0 % 10/01/21 23:29 Blast Cells % 0 % 10/01/21 23:29 Nucleated RBC % Not Reportable 10/01/21 23:29 Seg Neutrophils # 5.0 K/mm3 (1.8-7.7) 10/03/21 09:07 Seg Neutrophils # Man 7.5 K/mm3 (1.8-7.7) 10/01/21 23:29 Band Neutrophils # 0.0 K/mm3 10/01/21 23:29 Lymphocytes # (Manual) 5.5 K/mm3 (1.2-5.4) H 10/01/21 23:29 Abs React Lymphs (Man) 0.0 K/mm3 10/01/21 23:29 Monocytes # (Manual) 0.0 K/mm3 (0.0-0.8) 10/01/21 23:29 Eosinophils # (Manual) 0.0 K/mm3 (0.0-0.4) 10/01/21 23:29 Basophils # (Manual) 0.1 K/mm3 (0.0-0.1) 10/01/21 23:29 Metamyelocytes # 0.0 K/mm3 10/01/21 23:29 Myelocytes # 0.0 K/mm3 10/01/21 23:29 Promyelocytes # 0.0 K/mm3 10/01/21 23:29 Blast Cells # 0.0 K/mm3 10/01/21 23:29 WBC Morphology Not Reportable 10/01/21 23:29 Hypersegmented Neuts Not Reportable 10/01/21 23:29 Hyposegmented Neuts Not Reportable 10/01/21 23:29 Hypogranular Neuts Not Reportable 10/01/21 23:29 Smudge Cells Not Reportable 10/01/21 23:29 Toxic Granulation Not Reportable 10/01/21 23:29 Toxic Vacuolation Not Reportable 10/01/21 23:29 Dohle Bodies Not Reportable 10/01/21 23:29 Pelger-Huet Anomaly Not Reportable 10/01/21 23:29 Gómez Rods Not Reportable 10/01/21 23:29 Platelet Estimate Consistent w auto 10/01/21 23:29 Clumped Platelets Not Reportable 10/01/21 23:29 Plt Clumps, EDTA Not Reportable 10/01/21 23:29 Large Platelets Not Reportable 10/01/21 23:29 Giant Platelets Not Reportable 10/01/21 23:29 Platelet Satelliting Not Reportable 10/01/21 23:29 Plt Morphology Comment Not Reportable 10/01/21 23:29 RBC Morphology Not Reportable 10/01/21 23:29 Dimorphic RBCs Not Reportable 10/01/21 23:29 Polychromasia Not Reportable 10/01/21 23:29 Hypochromasia 3+ 10/01/21 23:29 Poikilocytosis Not Reportable 10/01/21 23:29 Anisocytosis Not Reportable 10/01/21 23:29 Microcytosis Not Reportable 10/01/21 23:29 Macrocytosis Not Reportable 10/01/21 23:29 Spherocytes Not Reportable 10/01/21 23:29 Pappenheimer Bodies Not Reportable 10/01/21 23:29 Sickle Cells Not Reportable 10/01/21 23:29 Target Cells Not Reportable 10/01/21 23:29 Tear Drop Cells Not Reportable 10/01/21 23:29 Ovalocytes Not Reportable 10/01/21 23:29 Helmet Cells Not Reportable 10/01/21 23:29 [place] Bodies Not Reportable 10/01/21 23:29 [place] Rings Not Reportable 10/01/21 23:29 Octavio Cells Not Reportable 10/01/21 23:29 Bite Cells Not Reportable 10/01/21 23:29 Crenated Cell Not Reportable 10/01/21 23:29 Elliptocytes Not Reportable 10/01/21 23:29 Acanthocytes (Spur) Not Reportable 10/01/21 23:29 Rouleaux Not Reportable 10/01/21 23:29 Hemoglobin C Crystals Not Reportable 10/01/21 23:29 Schistocytes Not Reportable 10/01/21 23:29 Malaria parasites Not Reportable 10/01/21 23:29 Brendan Bodies Not Reportable 10/01/21 23:29 Hem Pathologist Commnt No 10/01/21 23:29 PT 13.5 Sec. (12.2-14.9) 10/01/21 12:15 INR 0.93 (0.87-1.13) 10/01/21 12:15 APTT 27.6 Sec. (24.2-36.6) 10/01/21 12:15 Sodium 139 mmol/L (137-145) 10/05/21 04:13 Potassium 3.5 mmol/L (3.6-5.0) L 10/05/21 04:13 Chloride 102.3 mmol/L (98-107) 10/05/21 04:13 Carbon Dioxide 29 mmol/L (22-30) 10/05/21 04:13 Anion Gap 11 mmol/L 10/05/21 04:13 BUN 2 mg/dL (7-17) L 10/05/21 04:13 Creatinine 0.4 mg/dL (0.6-1.2) L 10/05/21 04:13 Estimated GFR > 60 ml/min 10/05/21 04:13 BUN/Creatinine Ratio 5 % 10/05/21 04:13 Glucose 106 mg/dL (65-100) H 10/05/21 04:13 POC Glucose 97 mg/dL (70-105) 10/04/21 17:22 Lactic Acid 1.60 mmol/L (0.7-2.0) 10/01/21 12:15 Calcium 8.1 mg/dL (8.4-10.2) L 10/05/21 04:13 Magnesium 1.70 mg/dL (1.7-2.3) 10/04/21 12:00 Total Bilirubin 0.30 mg/dL (0.1-1.2) 10/02/21 12:35 AST 17 units/L (5-40) 10/02/21 12:35 ALT 15 units/L (7-56) 10/02/21 12:35 Alkaline Phosphatase 34 units/L (35-129) L 10/02/21 12:35 Total Protein 5.0 g/dL (6.3-8.2) L 10/02/21 12:35 Albumin 3.3 g/dL (3.9-5) L 10/02/21 12:35 Albumin/Globulin Ratio 1.9 % 10/02/21 12:35 Urine HCG, Qual Negative (Negative) 10/03/21 16:15 Blood Type O POSITIVE 10/02/21 00:55 Antibody Screen Negative 10/02/21 00:55 Crossmatch See Detail 10/02/21 00:55 [place]/IV: Voiding Method Bedside Commode Active Medications - Current Medications Current Medications: Generic Name Dose Route Start Last Admin Trade Name Freq PRN Reason Stop Dose Admin Acetaminophen 650 mg 10/01/21 19:03 10/04/21 12:53 Acetaminophen 325 Mg Tab PO 650 mg Q4H PRN Administration Pain MILD(1-3)/Fever >100.5/FORTE Dextrose 50 ml 10/04/21 07:59 Dextrose 50% In Water (25gm) 50 Ml Syringe IV PRN PRN HYPOGLYCEMIA Dextrose 1,000 mls @ 75 mls/hr 10/04/21 07:00 10/05/21 10:54 D5w IV 75 mls/hr DIRECT MATT Administration Metoclopramide HCl 10 mg 10/01/21 19:03 Metoclopramide 10 Mg/2 Ml Inj IV Q6H PRN Nausea And Vomiting Morphine Sulfate 2 mg 10/01/21 19:03 10/05/21 09:55 Morphine 2 Mg/1 Ml Inj IV 2 mg Q4H PRN Administration Pain, Moderate (4-6) Ondansetron HCl 4 mg 10/01/21 19:03 10/02/21 01:24 Ondansetron 4 Mg/2 Ml Inj IV 4 mg Q8H PRN Administration Nausea And Vomiting Pantoprazole Sodium 20 mg 10/06/21 10:00 Pantoprazole 20 Mg Tab PO QDAY MATT Sodium Chloride 10 ml 10/01/21 22:00 10/05/21 09:48 Sodium Chloride 0.9% 10 Ml Flush Syringe IV 10 ml BID MATT Administration Sodium Chloride 10 ml 10/01/21 19:03 Sodium Chloride 0.9% 10 Ml Flush Syringe IV PRN PRN LINE FLUSH
[2021-10-05] MEDS: ACETAMINOPHEN 325 MG TAB PO PRN ×3 (16:45→23:55)
[2021-10-06] MEDS: PIPERACIL/TAZOBACTA 4.5/NS 100 4.5 GM/100 ML VIAL IV SCH ×4 (01:49→23:23)
[2021-10-06] MEDS ORDERED: PANTOPRAZOLE 20 MG TAB PO SCH (10:00)
[2021-10-06 14:35] LABS: Hematocrit 27.2 % (30.3-42.9); Hemoglobin 9.2 gm/dl (10.1-14.3); Mean Corpuscular HGB Conc 34 % (30-34); Mean Corpuscular Volume 89 fl (79-97); Platelet Count 281 K/mm3 (140-440); Red Blood Count 3.05 M/mm3 (3.65-5.03); Red Cell Distribution Width 15.5 % (13.2-15.2)
--- NOTE | 2021-10-06 14:42 | Progress Note ---
Assessment and Plan Assessment and plan: This is a 40 year old female with HTN, diverticulitis with prior diverticulitis bleed, internal hemorrhoids and chronic anemia who presents to the hospital on 10/01 with complaints of hematochezia which started 3 days prior with dizziness and lightheadedness. Work-up in the emergency department revealed H/H of 7.8/24, CT abdomen and pelvis showed cholelithiasis with no source of GI bleeding. Patient was admitted to the hospital service with consult to GI to IMCU for close monitoring. Hospital course to date: Colonoscopy finding FINDINGS: * Small amount of red tinged fluid in the terminal ileum unclear if blood from proximal source versus small amount of blood from colon migrating proximally to the terminal ileum * Scattered diverticulosis throughout the entire colon * Moderate amount of red blood scattered throughout the whole colon this was suctioned thoroughly with no active bleeding * Small nonbleeding internal hemorrhoids RECOMMENDATIONS: * Putative source for patient's GI bleed is colonic diverticular bleed. If she has recurrent overt large amount of GI bleeding especially with hemodynamic instability please call interventional radiology immediately. If patient has continued recurrent life-threatening GI bleeding can consider a subtotal colec sil though this would be a last resort intervention * Colonoscopy has not been able to isolate the diverticulum which is the source for GI bleed, unlikely that repeat endoscopic evaluation would be of benefit therefore GI will sign off 10/04: Patient had EGD this morning which showed extensive diverticulitis throughout colon without any specific source of bleeding identified. Patient has been cleared for diet and we will resume clear liquid diet. GI recommended if patient has recurrent large GI bleeding with hemodynamic instability IR should be notified immediately. 10/05: Patient remains clinically stable with no rebleed noted at this time. Findings on the colonoscopy and recommendation has been discussed with her she verbalizes understanding. We will be transferring her to the medical floor today and monitor H&H if no further rebleeding noted tomorrow patient can be discharged to follow-up with GI and surgery outpatient. Dietary changes discussed with the patient with preventive care planning and counseling discussed for 15 minutes. 10/06. Patient febrile overnight. Blood cultures collected and she was started empirically on zosyn by Rn Lvn. Will observe for no growth in blood culture. Patient noted to have LUE swelling that began overnight. No other complaints at this time. Plan: #Acute GI bleed #Acute on chronic blood loss anemia #Hemorrhagic shock #history of diverticulosis -hemoglobin 7.8 on admission decreased to 5.4/16.8 on 10/01 -s/p 6 units pRBCs and 2 FFP -transferred from IMCU to ICU on 10/03 -Transfuse hemoglobin less than 7 -Avoiding chemical anticoagulation in setting of recent GI bleed; SCDs for DVT ppx -10/04 EGD/colonoscopy revealed 2 cm hiatal hernia, findings consistent with reflux or eosinophilic esophagitis, scattered diverticulosis throughout the entire colon with no active bleeding, small nonbleeding internal hemorrhoids -IR consult if recurrent large upper GI bleed with hemodynamic instability -CTA abdomen/pelvis showed no acute abnormality, no evidence of localized bowel inflammation or obstruction, no evidence of active GI bleed, cholelithiasis -CT abdomen/pelvis with contrast showed cholelithiasis, no source of GI bleeding detected on standard CT with contrast #Fever -multiple Tmax 101 -Blood cultures collected -zosyn started -will continue to monitor, if no recurrence of fever and blood cultures remain negative, will discontinue zosyn -has LUE swelling, duplex ordered to evaluate for thrombophlebitis vs DVT #Hypokalemia-improving -will replete and monitor #Hypertension -no medications on file -BP improved, no longer hypotensive -will continue to monitor #Tobacco dependence #Tobacco counseling -Smoking cessation counseling, supportive care, behavior change counseling, +15 minutes. #Advanced care planning -Disease education conducted, care plan discussed, diagnoses discussed, prognosis discussed, and patient acknowledges understanding with care plan -Time: +30 min History Interval history: Patient febrile to 101 overnight. She did report left upper extremity swelling and pain overnight which required removal of IV. Arm pain has improved but still has noticeable swelling. Denies night sweats, cough, congestion. Hospitalist Physical - Physical exam Narrative exam: GENERAL: Well-developed well-nourished. In no acute distress. HEENT: Normocephalic. Atraumatic. NECK: Supple. CHEST/LUNGS: CTAB on room air HEART/CARDIOVASCULAR: RRR. No murmur, rubs or gallops appreciated. ABDOMEN: +BS. NT/ND. NEURO: No focal motor deficit. Follows all commands. MUSCULOSKELETAL: No joint effusion EXTREMITIES: No cyanosis, clubbing. L upper extremity swelling and warmth. PSYCH: Cooperative. - Constitutional Vitals: Temp Pulse Resp BP Pulse Ox 98.6 F 78 20 148/84 98 10/06/21 09:22 10/06/21 08:00 10/06/21 08:00 10/06/21 07:31 10/06/21 08:00 General appearance: Present: no acute distress, well-nourished, obese Results - Labs CBC & Chem 7: 10/06/21 13:34 10/05/21 04:13 Labs: Laboratory Last Values WBC 7.4 K/mm3 (4.5-11.0) 10/06/21 13:34 RBC 3.05 M/mm3 (3.65-5.03) L 10/06/21 13:34 Hgb 9.2 gm/dl (10.1-14.3) L 10/06/21 13:34 Hct 27.2 % (30.3-42.9) L 10/06/21 13:34 MCV 89 fl (79-97) 10/06/21 13:34 MCH 30 pg (28-32) 10/06/21 13:34 MCHC 34 % (30-34) 10/06/21 13:34 RDW 15.5 % (13.2-15.2) H 10/06/21 13:34 Plt Count 281 K/mm3 (140-440) 10/06/21 13:34 Lymph % (Auto) 33.9 % (13.4-35.0) 10/03/21 09:07 [place] % (Auto) 6.7 % (0.0-7.3) 10/03/21 09:07 Eos % (Auto) 0.2 % (0.0-4.3) 10/03/21 09:07 Baso % (Auto) 0.3 % (0.0-1.8) 10/03/21 09:07 Lymph # (Auto) 2.9 K/mm3 (1.2-5.4) 10/03/21 09:07 [place] # (Auto) 0.6 K/mm3 (0.0-0.8) 10/03/21 09:07 Eos # (Auto) 0.0 K/mm3 (0.0-0.4) 10/03/21 09:07 Baso # (Auto) 0.0 K/mm3 (0.0-0.1) 10/03/21 09:07 Add Manual Diff Complete 10/01/21 23:29 Total Counted 100 10/01/21 23:29 Seg Neutrophils % 58.9 % (40.0-70.0) 10/03/21 09:07 Seg Neuts % (Manual) 57.0 % (40.0-70.0) 10/01/21 23:29 Band Neutrophils % 0 % 10/01/21 23:29 Lymphocytes % (Manual) 42.0 % (13.4-35.0) H 10/01/21 23:29 Reactive Lymphs % (Man) 0 % 10/01/21 23:29 Monocytes % (Manual) 0 % (0.0-7.3) 10/01/21 23:29 Eosinophils % (Manual) 0 % (0.0-4.3) 10/01/21 23:29 Basophils % (Manual) 1.0 % (0.0-1.8) 10/01/21 23:29 Metamyelocytes % 0 % 10/01/21 23:29 Myelocytes % 0 % 10/01/21 23:29 Promyelocytes % 0 % 10/01/21 23:29 Blast Cells % 0 % 10/01/21 23:29 Nucleated RBC % Not Reportable 10/01/21 23:29 Seg Neutrophils # 5.0 K/mm3 (1.8-7.7) 10/03/21 09:07 Seg Neutrophils # Man 7.5 K/mm3 (1.8-7.7) 10/01/21 23:29 Band Neutrophils # 0.0 K/mm3 10/01/21 23:29 Lymphocytes # (Manual) 5.5 K/mm3 (1.2-5.4) H 10/01/21 23:29 Abs React Lymphs (Man) 0.0 K/mm3 10/01/21 23:29 Monocytes # (Manual) 0.0 K/mm3 (0.0-0.8) 10/01/21 23:29 Eosinophils # (Manual) 0.0 K/mm3 (0.0-0.4) 10/01/21 23:29 Basophils # (Manual) 0.1 K/mm3 (0.0-0.1) 10/01/21 23:29 Metamyelocytes # 0.0 K/mm3 10/01/21 23:29 Myelocytes # 0.0 K/mm3 10/01/21 23:29 Promyelocytes # 0.0 K/mm3 10/01/21 23:29 Blast Cells # 0.0 K/mm3 10/01/21 23:29 WBC Morphology Not Reportable 10/01/21 23:29 Hypersegmented Neuts Not Reportable 10/01/21 23:29 Hyposegmented Neuts Not Reportable 10/01/21 23:29 Hypogranular Neuts Not Reportable 10/01/21 23:29 Smudge Cells Not Reportable 10/01/21 23:29 Toxic Granulation Not Reportable 10/01/21 23:29 Toxic Vacuolation Not Reportable 10/01/21 23:29 Dohle Bodies Not Reportable 10/01/21 23:29 Pelger-Huet Anomaly Not Reportable 10/01/21 23:29 Gómez Rods Not Reportable 10/01/21 23:29 Platelet Estimate Consistent w auto 10/01/21 23:29 Clumped Platelets Not Reportable 10/01/21 23:29 Plt Clumps, EDTA Not Reportable 10/01/21 23:29 Large Platelets Not Reportable 10/01/21 23:29 Giant Platelets Not Reportable 10/01/21 23:29 Platelet Satelliting Not Reportable 10/01/21 23:29 Plt Morphology Comment Not Reportable 10/01/21 23:29 RBC Morphology Not Reportable 10/01/21 23:29 Dimorphic RBCs Not Reportable 10/01/21 23:29 Polychromasia Not Reportable 10/01/21 23:29 Hypochromasia 3+ 10/01/21 23:29 Poikilocytosis Not Reportable 10/01/21 23:29 Anisocytosis Not Reportable 10/01/21 23:29 Microcytosis Not Reportable 10/01/21 23:29 Macrocytosis Not Reportable 10/01/21 23:29 Spherocytes Not Reportable 10/01/21 23:29 Pappenheimer Bodies Not Reportable 10/01/21 23:29 Sickle Cells Not Reportable 10/01/21 23:29 Target Cells Not Reportable 10/01/21 23:29 Tear Drop Cells Not Reportable 10/01/21 23:29 Ovalocytes Not Reportable 10/01/21 23:29 Helmet Cells Not Reportable 10/01/21 23:29 [place] Bodies Not Reportable 10/01/21 23:29 [place] Rings Not Reportable 10/01/21 23:29 [place] Cells Not Reportable 10/01/21 23:29 Bite Cells Not Reportable 10/01/21 23:29 Crenated Cell Not Reportable 10/01/21 23:29 Elliptocytes Not Reportable 10/01/21 23:29 Acanthocytes (Spur) Not Reportable 10/01/21 23:29 Rouleaux Not Reportable 10/01/21 23:29 Hemoglobin C Crystals Not Reportable 10/01/21 23:29 Schistocytes Not Reportable 10/01/21 23:29 Malaria parasites Not Reportable 10/01/21 23:29 Brendan Bodies Not Reportable 10/01/21 23:29 Hem Pathologist Commnt No 10/01/21 23:29 PT 13.5 Sec. (12.2-14.9) 10/01/21 12:15 INR 0.93 (0.87-1.13) 10/01/21 12:15 APTT 27.6 Sec. (24.2-36.6) 10/01/21 12:15 Sodium 139 mmol/L (137-145) 10/05/21 04:13 Potassium 3.5 mmol/L (3.6-5.0) L 10/05/21 04:13 Chloride 102.3 mmol/L (98-107) 10/05/21 04:13 Carbon Dioxide 29 mmol/L (22-30) 10/05/21 04:13 Anion Gap 11 mmol/L 10/05/21 04:13 BUN 2 mg/dL (7-17) L 10/05/21 04:13 Creatinine 0.4 mg/dL (0.6-1.2) L 10/05/21 04:13 Estimated GFR > 60 ml/min 10/05/21 04:13 BUN/Creatinine Ratio 5 % 10/05/21 04:13 Glucose 106 mg/dL (65-100) H 10/05/21 04:13 POC Glucose 127 mg/dL (70-105) H 10/05/21 17:49 Lactic Acid 1.60 mmol/L (0.7-2.0) 10/01/21 12:15 Calcium 8.1 mg/dL (8.4-10.2) L 10/05/21 04:13 Magnesium 1.70 mg/dL (1.7-2.3) 10/04/21 12:00 Total Bilirubin 0.30 mg/dL (0.1-1.2) 10/02/21 12:35 AST 17 units/L (5-40) 10/02/21 12:35 ALT 15 units/L (7-56) 10/02/21 12:35 Alkaline Phosphatase 34 units/L (35-129) L 10/02/21 12:35 Total Protein 5.0 g/dL (6.3-8.2) L 10/02/21 12:35 Albumin 3.3 g/dL (3.9-5) L 10/02/21 12:35 Albumin/Globulin Ratio 1.9 % 10/02/21 12:35 Urine HCG, Qual Negative (Negative) 10/03/21 16:15 Blood Type O POSITIVE 10/02/21 00:55 Antibody Screen Negative 10/02/21 00:55 Crossmatch See Detail 10/02/21 00:55 Microbiology: Microbiology 10/06/21 00:31 Peripheral/Venous Blood Culture - Preliminary Culture in Progress 10/06/21 00:54 Peripheral/Venous Blood Culture - Preliminary Culture in Progress [place]/IV: Voiding Method Bedside Commode Active Medications - Current Medications Current Medications: Generic Name Dose Route Start Last Admin Trade Name Freq PRN Reason Stop Dose Admin Acetaminophen 650 mg 10/01/21 19:03 10/05/21 23:55 Acetaminophen 325 Mg Tab PO 650 mg Q4H PRN Administration Pain MILD(1-3)/Fever >100.5/FORTE Dextrose 50 ml 10/04/21 07:59 Dextrose 50% In Water (25gm) 50 Ml Syringe IV PRN PRN HYPOGLYCEMIA Dextrose 1,000 mls @ 75 mls/hr 10/04/21 07:00 10/05/21 22:35 D5w IV 75 mls/hr DIRECT MATT Administration Piperacillin Sod/Tazobactam Sod 4.5 gm in 100 mls @ 200 mls/hr 10/06/21 00:00 10/06/21 08:25 Zosyn/Ns 4.5gm/100ml IV 200 mls/hr Q8H MATT Administration Protocol Metoclopramide HCl 10 mg 10/01/21 19:03 Metoclopramide 10 Mg/2 Ml Inj IV Q6H PRN Nausea And Vomiting Morphine Sulfate 2 mg 10/01/21 19:03 10/05/21 09:55 Morphine 2 Mg/1 Ml Inj IV 2 mg Q4H PRN Administration Pain, Moderate (4-6) Ondansetron HCl 4 mg 10/01/21 19:03 10/02/21 01:24 Ondansetron 4 Mg/2 Ml Inj IV 4 mg Q8H PRN Administration Nausea And Vomiting Pantoprazole Sodium 20 mg 10/06/21 10:00 10/06/21 09:27 Pantoprazole 20 Mg Tab PO 20 mg QDAY MATT Administration Sodium Chloride 10 ml 10/01/21 22:00 10/05/21 21:00 Sodium Chloride 0.9% 10 Ml Flush Syringe IV 10 ml BID MATT Administration Sodium Chloride 10 ml 10/01/21 19:03 Sodium Chloride 0.9% 10 Ml Flush Syringe IV PRN PRN LINE FLUSH
[2021-10-06 14:56] LABS: Blood Urea Nitrogen 3 mg/dL (7-17); Calcium 8.5 mg/dL (8.4-10.2); Hemolysis Index 6
--- NOTE | 2021-10-06 14:58 | Vascular Lab Report ---
DUPLEX DOPPLER UPPER EXTREMITY VENOUS, LEFT INDICATION / CLINICAL INFORMATION: r/o DVT. Left arm swelling. TECHNIQUE: Duplex doppler imaging was performed through the veins of the left upper extremity using v enous compression and other maneuvers. COMPARISON: None available. FINDINGS: LEFT INTERNAL JUGULAR VEIN: Negative. LEFT SUBCLAVIAN VEIN: Negative. LEFT AXILLARY VEIN: Negative. LEFT BRACHIAL VEIN: Negative. LEFT FOREARM VEINS: Negative. LEFT CEPHALIC VEIN (SUPERFICIAL): Positive ADDITIONAL FINDINGS: None. IMPRESSION: No evidence for DVT. Positive for occlusive acute appearing thrombus in the cephalic vein. The patient's nurse, michael Orr as informed of these findings at 1258 hours by the technologist. Signer Name: Sergei Lentz Jr, MD Signed: 10/06/2021 2:53 PM Workstation Name: [id number]
[2021-10-06 15:03] LABS: BUN/Creatinine Ratio 5
[2021-10-06] MEDS ORDERED: ZOLPIDEM 5 MG TAB PO ONE (23:10)
[2021-10-06 23:40] VITALS: BP 142/87
[2021-10-07] MEDS: PIPERACIL/TAZOBACTA 4.5/NS 100 4.5 GM/100 ML VIAL IV SCH (08:07)
--- NOTE | 2021-10-07 08:09 | Discharge Summary ---
Providers - Providers Date of Admission: 10/01/21 19:03 Date of discharge: 10/07/21 Attending physician: YVAN WILKS MD 10/01/21 19:03 Consult to Physician [CONS] Routine Comment: Consulting Provider: NALINI ABRAHAM Physician Instructions: Reason For Exam: Lower GI bleed 10/03/21 08:47 Consult to Physician [CONS] Routine Comment: Consulting Provider: OLIVE RAMIREZ Physician Instructions: Reason For Exam: GI bleed 10/03/21 08:58 Consult to Physician [CONS] Routine Comment: Consulting Provider: ALISON CLEMENT Physician Instructions: Reason For Exam: GI BLEED WITH SYNCOPE Primary care physician: COMPLIANCE PROFESSIONAL Hospitalization Reason for admission: GI bleed Condition: Stable Hospital course: 41-year-old female with history of hypertension who presented with rectal bleeding x3 days. She was admitted for management of GI bleed. Abdominal CT without contrast was negative. Initial hemoglobin was 7.8 and it dropped to 5.4. She was transferred to ICU. She received 6 units of packed red cells and 2 units of fresh frozen plasma. Her hemoglobin improved to 9.[address] angio of the abdomen/pelvis showed no acute abnormality or evidence of GI bleed. EGD showed a 2 cm hiatal hernia. Colonoscopy revealed a small amount of red-tinged fluid in the terminal ileum, scattered diverticulosis throughout colon, as well as blood throughout the entire colon, and small nonbleeding internal hemorrhoids. No active source of bleeding was found. The patient spiked a fever to 101.4. Blood cultures were collected and were negative at time of discharge. She was noted to have swelling of her left upper extremity after IV insertion. Extremity venous Doppler showed acute superficial cephalic vein occlusion. She was treated supportively with improvement in arm swelling. She defervesced and was discharged home. Disposition: 01 HOME / SELF CARE / HOMELESS Final Discharge Diagnosis (Prints w/discharge instructions): Acute GI bleed. Acute on chronic blood loss anemia. Hemorrhagic shock. History of diverticulosis. Fever. Hypokalemia. Hypertension. Tobacco dependence Time spent for discharge: 40 minutes Core Measure Documentation - Palliative Care Palliative Care/ Comfort Measures: Not Applicable - Core Measures Any of the following diagnoses?: none Exam - Physical Exam Narrative exam: GENERAL: Well-developed well-nourished. In no acute distress. HEENT: Normocephalic. Atraumatic. NECK: Supple. CHEST/LUNGS: CTAB on room air HEART/CARDIOVASCULAR: RRR. No murmur, rubs or gallops appreciated. ABDOMEN: +BS. NT/ND. NEURO: No focal motor deficit. Follows all commands. MUSCULOSKELETAL: No joint effusion EXTREMITIES: No cyanosis, clubbing. L upper extremity swelling improved. PSYCH: Cooperative. - Constitutional Vitals: Temp Pulse Resp BP Pulse Ox 99.8 F H 92 H 20 142/87 98 10/06/21 23:06 10/07/21 04:00 10/06/21 23:06 10/06/21 23:06 10/07/21 04:00 Plan Care Plan Goals: Please follow-up with your primary care doctor and outpatient torpedo worker. For the blood clot in your left arm, there is no need to start blood thinners at this time. He can manage it by applying warm/cold compresses to the affected area. If it is painful you can take Tylenol. If the pain does not resolve within the next 3 to 4 days and swelling occurs please return for repeat ultrasound of your arm. Follow up with: PRIMARY CAREMD [Primary Care Provider] - 3-5 Days Forms: Accompanied Note Prescriptions: Pantoprazole [Protonix TAB] 20 mg PO QDAY 30 Days #30 tablet.
== END 2021-10-07 14:00 | disposition home or self-care (01) | DRG 377 ==
LOC: ED 10:20 → 3A 19:03 → IMCU 10-02 00:53 → CC1 10-03 10:19 → IMCU 10-04 15:45 → 4A 10-05 22:21
PROVIDERS: ADMIT Internal Medicine; ATTEND Student in an Organized Health Care Education/Training Program
PROC: 30233K1 Transfusion of Nonautologous Frozen Plasma into Peripheral Vein, Percutaneous Approach (ICD-10-PCS; principal; 2021-10-02)
PROC: 30233N1 Transfusion of Nonautologous Red Blood Cells into Peripheral Vein, Percutaneous Approach (ICD-10-PCS; 2021-10-03)
PROC: 0DJ08ZZ Inspection of Upper Intestinal Tract, Via Natural or Artificial Opening Endoscopic (ICD-10-PCS; 2021-10-04)
PROC: 0DJD8ZZ Inspection of Lower Intestinal Tract, Via Natural or Artificial Opening Endoscopic (ICD-10-PCS; 2021-10-04)
DX: K92.2 Gastrointestinal hemorrhage, unspecified (principal); R57.8 Other shock; D62 Acute posthemorrhagic anemia; Z20.822 Contact with and (suspected) exposure to COVID-19; F17.200 Nicotine dependence, unspecified, uncomplicated; I10 Essential (primary) hypertension; Z82.49 Family history of ischemic heart disease and other diseases of the circulatory system; E87.6 Hypokalemia
CPT/HCPCS: 36415; 74174; 74177; 80048; 80053; 81025; 82140; 82962; 83735; 85007; 85014; 85018; 85025; 85027; 85610; 85730; 86850; 86900; 86901; 86920; 87040; 96361; 96374; 99285; G0378; J3490; C9113; J0171; J2270; J2405; J2543; J2704; J7030; J7040; J7070; P9016; P9017; Q9967; U0003

== ENCOUNTER 2021-12-09 15:37 | Emergency (ER) | payer SELFPAY ==
[2021-12-09 16:16] VITALS: BP 154/84
== END 2021-12-13 10:58 | disposition left against medical advice (07) ==
LOC: ED 15:37
DX: R10.9 Unspecified abdominal pain (principal); Z53.21 Procedure and treatment not carried out due to patient leaving prior to being seen by health care provider